=== PATIENT | female | born 1955 | race Caucasian/White ===

== ENCOUNTER 2020-08-19 14:38 | Inpatient (IN) | payer MEDICARE ==
[~2020-08-19] VITALS: Ht 165.1 cm; Wt 103.4 kg
[2020-08-19 15:13] LABS: BASOPHILS ABSOLUTE AUTO 0.05 K/mm3 (0.00-0.23); BASOPHILS PERCENT AUTO 1 % (0-2); EOSINOPHILS PERCENT AUTO 1 % (0-6); Hematocrit 47.5 % (33.0-51.0); Hemoglobin 15.1 g/dL (11.5-16.0); IMMATURE GRAN ABSOLUTE AUTO 0.02 K/mm3 (0.00-0.10); IMMATURE GRAN PERCENT AUTO 0 % (0-1); LYMPHOCYTES ABSOLUTE AUTO 2.55 K/mm3 (0.84-5.20); LYMPHOCYTES PERCENT AUTO 34 % (21-46); MONOCYTES ABSOLUTE AUTO 0.54 K/mm3 (0.16-1.47); MONOCYTES PERCENT AUTO 7 % (4-13); Mean Corpuscular HGB 27.8 pg (26.0-34.0); Mean Corpuscular HGB Conc 31.8 g/dL (31.5-36.5); Mean Corpuscular Volume 87 fL (80-100); Mean Platelet Volume 11.7 fL (9.1-12.4); NEUTROPHILS ABSOLUTE AUTO 4.36 K/mm3 (1.96-9.15); NEUTROPHILS PERCENT AUTO 57 % (41-73); Platelet Count 260 K/mm3 (150-400); RDW Coefficient Variation 13.7 % (11.7-14.2); RDW Standard Deviation 43.8 fL (35.1-46.3); Red Blood Cell Count 5.44 M/mm3 (3.80-5.20); White Blood Cell Count 7.62 K/mm3 (4.00-11.30)
[2020-08-19 15:31] LABS: Alanine Aminotransfer (ALT/SGP 35 U/L (12-78); Albumin, Blood 3.7 g/dL (3.4-5.0); Albumin/Globulin Ratio 0.9 (0.8-1.8); Alk Phos 113 U/L (50-136); Anion Gap 6 mmol/L (6-16); Aspartate Aminotrans (AST/SGOT 24 U/L (12-37); Bilirubin, Total 0.3 mg/dL (0.1-1.0); Blood Urea Nitrogen 15 mg/dL (8-24); CO2, Blood 27 mmol/L (21-32); Calcium, Blood 9.1 mg/dL (8.5-10.1); Chloride, Blood 112 mmol/L (98-108); Creatinine, Blood 0.68 mg/dL (0.40-1.00); Globulin, Blood 4.2 g/dL (2.2-4.0); Glomerular Filtration Rate >60 (60-); Glucose, Blood 91 mg/dL (70-99); Sodium, Blood 145 mmol/L (136-145); Total Protein, Blood 7.9 g/dL (6.4-8.2)
[2020-08-19 16:24] LABS: International Normalized Ratio 0.97; Prothrombin Time Results 10.4 Sec (9.7-11.5)
[2020-08-19 19:28] LABS: CHOL/HDL RATIO 4.6; Cholesterol 218 mg/dL (50-200); HDL Cholesterol 47 mg/dL (>39); LDL/HDL RATIO 2.8; Low Density Lipoprotein Chol 134 mg/dL (0-110); Triglycerides 186 mg/dL (30-160); Very Low Density Lipoprot Chol 37 mg/dL (6-32)
--- NOTE | 2020-08-19 21:00 | NUR ---
ADMIT NOTE PT ARRIVED TO PCU FROM ED VIA STRETCHER AT APPROX 2030. PT WAS SLID FROM ED STRETCHER TO PCU BED WITH 2 STAFF. PT ALERT, ORIENTED TO SELF. ANSWERS YES OR NO QUESTIONS APPROPRIATELY. PT HAS LEFT SIDED STARE, RIGHT FACIAL DROOP AND RIGHT SIDE WEAKNESS. SP02>92% ON RA. TELMETRY READS SR, HR 60'S. PT STATES NO PAIN. CHANGED PT'S ATTENDS UPON ARRIVAL, NEW ATTENDS C/D/I. ADMINISTERED SUPPOSITORY ASPIRIN PER EMAR. NS INFUSING PER EMAR. WITH PT UPON ARRIVAL BUT WENT HOME SHORTLY AFTER. CALL LIGHT IN REACH. WILL CONTINUE TO MONITOR.
--- NOTE | 2020-08-20 05:53 | NUR ---
SHIFT SUMMARY PT ALERT, ORIENTED TO SELF. ANSWERS YES OR NO QUESTIONS APPROPRIATELY. PT SOMETIMES ANSWERS QUESTIONS WITH NON APPROPRIATE ANSWERS/WORDS, BUT APPEARS TO RECOGNIZE THAT SHE IS NOT SAYING THE WORDS SHE IS WANTING TO SAY. PT HAS RIGHT FACIAL DROOP AND RIGHT SIDE WEAKNESS. PT ABLE TO RAISE R LEG UPON COMMAND. PT R ARM/HAND DOES NOT RAISE MORE THAN A FEW INCHES WHEN SHE TRIES TO RAISE IT. SP02>92% ON RA. TELMETRY READS SR, HR 60'S. PT STATES NO PAIN. PT INCONTINENT, NEW ATTENDS C/D/I. NS INFUSING PER EMAR. PT SLEPT T/O THE NIGHT. CALL LIGHT IN REACH. WILL CONTINUE TO MONITOR UNTIL END OF SHIFT.
--- NOTE | 2020-08-20 09:20 | NUR ---
ASSUME CARE: PT IN BED UPON RECEIVING REPORT. PT ALERT ABLE TO STATE NAME AND AWARE THAT SHE'S IN [place] BUT DOESNT KNOW SHE'S IN THE HOSPITAL, PT IS SOMEWHAT CONFUSED ASKED ABOUT HER AGE PT STATED SHE WAS 38 AND 35, ALSO PULLED HER OXIMETRY OFF AND TOLD THIS RN SHE WANTS TO GET OUT OF BED, PT WAS REDIRECTED ABOUT HER SAFETY INSTRUCTED TO USE CALL LIGHT FOR HELP, BED ALARM ON FOR SAFETY. PT INCONTINENT OF VOIDS. VITALS HRR SINUS AT 70'S, BP SYSTOLIC 170-180'S PERMISSIVE HYPERTENSION AT THIS TIME, SATS ABOVE 95% ON RA, AFEBRILE. PT REMAINS NPO NS RUNNING AT 75MLS/HR, AWAITING FOR MRI SCAN FOR TODAY. PT CURRENTLY RECEIVING ASPIRIN SUPPOSITORY. PT IN BED RESTING CALL LIGHTS IN REACH WILL MONITOR
--- NOTE | 2020-08-20 17:57 | NUR ---
PT SUMMARY: SEE PREVIOUS NOTE. NO ACUTE CHANGE FOR THE SHIFT, BP RAMAINED ELEVATED 170-190 WAS GIVEN IV LABETALOL X1 1O MG, PT WAS STARTED ON PO BP MEDS TODAY, HRR NSR 70'S, SATS ABOVE 955 ON RA, AFEBRILE. DIET ADVANCED TO MECH SOFT NECTAR THICK, PT ATE 100% OF DINNER TOLERATED WELL. PT WORKED WITH THERAPY TODAY WAS ABLE TO TRANSFER TO CHAIR 1PA STAND PIVOT. PT RIGHT SIDE STILL WEAK RIGHT FACE DROOP, EXPRESSIVE APHASIA. WAS IN TO VISIT TODAY AWARE OF THE PLANS FOR THE PT. MRI DONE TODAY SHOWED ACUTE INFARCT ON LEFT THALAMUS. NO PLAN FOR INTERVENTION AT THIS TIME, PT WAS STARTED ON PO MEDS. PT IN BED NOW RESTING CALL LIGHTS IN REACH ABLE TO MAKE NEEDS KNOWN, WILL REPORT TO ONCOMING SHIFT
--- NOTE | 2020-08-20 20:00 | NUR ---
CARE ASSUMPTION PT ALERT, ABLE TO MAKE NEEDS KNOWN. CAN ANSWER SOME QUESTIONS APPROPRIATELY, BUT HAS SOME MOMENTS OF EXPRESSIVE APHAGIA. PT ABLE TO USE CALL LIGHT APPROPRIATELY. VSS. SP02>92% ON RA. TELEMETRY READS SR, HR 70'S. PT HAS RIGHT SIDE WEAKNESS, RIGHT SIDE FACIAL DROOP. [place] [facility] [place], GAIT BELT AND FWW. PT DENIES PAIN. CALL LIGHT IN REACH. BED ALARM ON. WILL CONTINUE TO MONITOR.
--- NOTE | 2020-08-21 05:21 | NUR ---
SHIFT SUMMARY NO ACUTE CHANGES THIS SHIFT. PT ALERT, ABLE TO MAKE NEEDS KNOWN. CAN ANSWER SOME QUESTIONS APPROPRIATELY AND STATE NAME/, BUT HAS SOME MOMENTS OF EXPRESSIVE APHAGIA. VSS. SP02>92% ON RA. TELEMETRY READS SR, HR 70'S. PT HAS RIGHT SIDE WEAKNESS, RIGHT SIDE FACIAL DROOP. [place] [facility] [place] 2 [place]IST, GAIT BELT AND FWW. PT HAD EPISODES OF INCONTINENCE WELL, C/D ATTENDS IN PLACE. PT DENIES PAIN. CALL LIGHT IN REACH. BED ALARM ON. WILL CONTINUE TO MONITOR.
--- NOTE | 2020-08-21 08:00 | NUR ---
pt laying in bed awake, watching tv. she responds appropriatley, she's a/ox3, but trying to open a sugar package with one hand, when asked if I can help, she responds no I can get it, did set her tray up, she was able to take po meds one at a time with applesauce, she does have a right side facial droop, her right extremity is very weak, able to barely move it, and slightly open fingers, feet are equally strong, santiago, lungs are clear t/o, on r/a at this time, denies any complaints of pain or sob, voids via bed lozada at this time as she is a max assist to chair, attends in place, skin has scabs all over, moves legs and left hand, call light in reach.
--- NOTE | 2020-08-21 11:08 | NUR ---
it was noted by P.T. and speech that pt is worse neuro moore than yesterday, Dr. Cabrera called and came to room, he ordered another C.T. scan and a loading dose of plavix, this was done. pt right arm is completely flacid, speech feels that her speech is worse today and wants her to be npo, she did swallow the plavix with applesauce ok, she denies complaints, her b/p is better than this am, call light in reach.
--- NOTE | 2020-08-21 18:25 | NUR ---
pt is unchanged, denies any needs or complaints states she feels ok, call light in reach.
--- NOTE | 2020-08-22 05:17 | NUR ---
SHIFT SUMMARY NO ACUTE CHANGES THIS SHIFT. PT ALERT, ABLE TO ANSWER QUESTIONS AND USE CALL LIGHT APPROPRIATELY. PT HAS R SIDE FACIAL DROOP AND R SIDE WEAKNESS. ABLE TO SQUEEZE THIS RN FINGER W/ RIGHT HAND UPON COMMAND, BUT VERY WEAKLY. SP02>92% ON RA. TELMETRY READS SR, HR 60'S. PT INCONTINENT, VOIDED IN ATTENDS MULTIPLE TIMES THIS SHIFT. C/D ATTENDS IN PLACE. PT CONTINUES TO BE NPO PER ORDERS. NS INFUSING THIS SHIFT PER EMAR. PT DENIES PAIN. CALL LIGHT IN REACH. WILL CONTINUE TO MONITOR.
--- NOTE | 2020-08-22 07:57 | NUR ---
pt laying in bed awake, a/ox3, pleasant and cooperative with care, follows commands well, denies any complaints, reports her night was good, lungs are clear t/o, resp even and unlabored, no cough noted, hrr, tele in place running sr per monitor, see strip, no edema noted, ppp+1, cap refill <3sec, b/p a bit high, will give meds soon, iv sites are clear and patent, infusing ns as ordered, btx4, abd flat soft nontender, incont of urine, attends in place, skin has scabs all over, moves left arm without diff, she cant lift right arm but has a weak intelligence operations specialist, but can't open fingers, no movement to foot, santiago, right facial droop, expressive aphagia at times, call light in reach.
--- NOTE | 2020-08-22 12:08 | NUR ---
pt sitting up in a chair, she denies complaints. states she is doing fine, not too cold, no needs, set her up for lunch. call light in reach.
--- NOTE | 2020-08-22 17:57 | NUR ---
PT HAD AN UNEVENTFUL DAY, HAS BEEN CHANGED TO MEDICAL STATUS, IS TRANSFERRING TO MEDICAL FLOOR VIA BED, WITH DRENCHER'S IN ATTENDENCE. REPORT GIVEN TO DELILAH DOUGLAS, ALL BELONGINGS WITH PT.
--- NOTE | 2020-08-22 18:59 | NUR ---
choked while eating dispte having an aid standing by, she coughted with food in her mouth and kept couging for almost 5 min, hob elevated, alert but easily confused, soft spoken, cooperative, both iv's saline locked, rm air, sitting up interacting with nurses during shift change, ron started
--- NOTE | 2020-08-23 03:49 | NUR ---
SUMMARY NO MARKED CHANGES NOTED. PT WATCHED TV UNTIL FALLING ASLEEP. PT CURRENTLY SLEEPING AND IN NO DISTRESS. CALL LIGHT IN REACH.
--- NOTE | 2020-08-23 10:00 | NUR ---
received report from noc shift, a+o, call light in reach bed in low position, pt monitored for meals, speech in to evaluate, sitting up watching tv, neuro eval same as previous day, will continue to monitor and treat, saline locked
--- NOTE | 2020-08-23 18:03 | NUR ---
a+o but still asphasic, r side weakness has not changed during shift, worked with pt and speech, still to be supervised during meals, cooperative with care, saline locked, rm air, call light in reach, resting quietly when woken up for dinner, will continue to monitor and treat until share bsr with noc nurse
--- NOTE | 2020-08-24 04:34 | NUR ---
MUSEUM SECURITY CHIEF SUMMARY PT A&O, PLEASANT AND COOPERATIVE TO CARE. APHASIC. NO C/O PAIN OR ANY DISCOMFORT THIS SHIFT. CALM AND RESTED IN BED T/O SHIFT. R SIDED WEAKNESS. INCONTINENT. ATTENDS IN PLACE. WILL CONT TO MONITOR PATIENT, BED AT LOWEST POSITION. CALL LIGHT WITHIN REACH.
--- NOTE | 2020-08-24 11:00 | NUR ---
A+O, MORE AWAKE AND RESPONSIVE THAN YESTERDAY, SALINE locked, call light in reach, bed in low position, denies pain, feels touch on r side but only gross movement, good profusion and warm, rm air, hob elevated per pt request, sitting up watching tv, ate meals declined snacks thus far, will continue to montitor and treat as appropriate, encouraged movement of limbs while in bed
--- NOTE | 2020-08-24 16:33 | NUR ---
ECHOCARDIOGRAM COMPLETED
--- NOTE | 2020-08-24 19:07 | NUR ---
a+o, still sleepy but more cheerful, family acknolweged the rash all over body said she always got it when lying down, cream prescribed by but not available until 2100, will pass on to noc shift, pt asked if she could get a specialized treatment nurse recommened talking to . wrote note on board to help her remember and family said they would also try to remind her, pt was offered the cream but was hesitant thinking it was to much bother since the rash did not bother her, call light in reach, saline locked, rm air, bed in low position, frequent repositioning, cooperative, much more animated today than previously, still not moving r side significantly
--- NOTE | 2020-08-25 03:46 | NUR ---
DRILL GRINDER SUMMARY PT A&O, ABLE TO MAKE NEEDS KNOWN. PLEASANT AND COOPERATIVE TO CARE. NO C/O PAIN OR ANY DISCOMFORT THIS SHIFT. PT IS 2 PERSON ASSIST. R SIDED WEAKNESS. INCONTINENT, ATTENDS IN PLACE. PT DENIES CP, SOB, OR N/V. BED AT LOWEST POSITION. CALL LIGHT WITHIN REACH.
--- NOTE | 2020-08-25 08:00 | NUR ---
PT PLEASANT DOES HAVE RT FACIAL DROOP. RT EXTREMETIES PRESENT NO MOVEMENT FOR ME ON COMMAND. DENIES PAIN AT THIS TIME. H/R REG, NO MURMER NOTED. NO TELE. LUNGS CLEAR, WITH RT MID AND LOW BASE DIM. ON R/A. RESP EASY, UNLABORED. BT X4 LAST BM TODAY PER PT. VOIDS INCONT. ATTENDS CDI AT THIS TIME. SCABS T/O TRUNK. PT STATES HAS HAD FOR SOME TIME. BED IN LOW POSITION, CALL LITE IN REACH, CALLS APPROP.
--- NOTE | 2020-08-25 11:19 | NUR ---
permission to provide care supa kraft a student nurse recieved permission to provide care to pt on 08/25/2020
--- NOTE | 2020-08-25 13:06 | NUR ---
SPEACH THERAPY INDICATES PT SWEATING ON RT OF FACE AND HEAD. OBSERVED. VSS. PT DENIES DISTRESS. CALLED
--- NOTE | 2020-08-25 15:04 | NUR ---
CALLED BACK. ADVISED OF PAST EVENT OF SWEATING AT RT FACE AND HAIRLINE. DR HIDALGO DID YEST ALSO. NO NEW ORDERS.
--- NOTE | 2020-08-25 18:03 | NUR ---
Spiritual care intial note: Met with Mrs. Lowery and her spouse at bedside. They are non-worship and declined prayer. Pt admits to being worried, but did not want to engage in conversation. Offered gentle encouragement. I will remain available.
--- NOTE | 2020-08-25 18:35 | NUR ---
mauricio discussed with me that opt teeth loose. upon beginning oral care. observed pt mouth. teeth are quite loose. large buildup on teeth. recommended no oral care until seen by dr. called dr mclaughlin. discussed with her. she to see pt tomorrow and advise.
--- NOTE | 2020-08-26 04:25 | NUR ---
PROPERTIES SUPERVISOR SUMMARY PT A&OX3, ABLE TO MAKE NEEDS KNOWN. PLEASANT AND COOPERATIVE TO CARE. CALL APPROPRIATELY FOR ASSISTANCE. PT IS 2P MAX ASSIST D/T R SIDED DEFICIT. PT IS INCONTINENT B/B, ATTENDS IN PLACE. NO C/O PAIN OR ANY DISCOMFORT THIS SHIFT. NO C/O CP, SOB, OR N/V. CALM AND RESTED IN BED T/O SHIFT. CALL LIGHT WITHIN REACH.
[2020-08-26 08:10] LABS: COMPLEMENT C3, SERUM 224 mg/dL (82-167); COMPLEMENT C4, SERUM 38 mg/dL (12-38)
[2020-08-26 17:07] LABS: ANA DIRECT Negative (Negative); ANTI-DSDNA ANTIBODIES 4 IU/mL (0-9); RNP ANTIBODIES <0.2 AI (0.0-0.9); SJOGREN'S ANTI-SS-A <0.2 AI (0.0-0.9); SJOGREN'S ANTI-SS-B <0.2 AI (0.0-0.9); SMITH ANTIBODIES <0.2 AI (0.0-0.9)
--- NOTE | 2020-08-26 17:23 | NUR ---
SHIFT SUMMARY NO ACUTE CHANGES T/O SHIFT, PT A&O TO SELF AND PLACE. CALM AND FOLLOWS DIRECTIONS. PT IS STILL SHOWING RIGHT SIDED DEFICITS. PT WAS ABLE TO GET TO BSC AND CHAIR WITH 2 PERSON ASSISTANCE. PT SEEMED A LITTLE ON THE NERVOUS SIDE WITH ANY PIVOTING OR AMBULATION. PT IS STILL HAVING SOME EXPRESIVE APHASIA, BUT PRIMARILY SLOW SPEECH. SHE REALLY DOES NOT WANT TO GO TO AN IRU; HOWEVER, AND DC PRESCHOOL DISABILITY TEACHER ARE STRONGLY ENCOURAGING HER TO. CONTINUED MEDS WHOLE W/ APPLESAUCE, ONE @ A TIME. CREAM APPLIED TO RASH T/O. BUILD UP AND PLAQUE NOTICED ALONG ROOF OF MOUTH, TEETH, AND BACK OF THROAT. PT REPORTS NO PAIN WITH ORAL CARE BUT TEETH ARE LOOSE.
[2020-08-27 05:12] LABS: Albumin, Blood 3.4 g/dL (3.4-5.0); Anion Gap 7 mmol/L (6-16); Blood Urea Nitrogen 27 mg/dL (8-24); CO2, Blood 27 mmol/L (21-32); Calcium, Blood 9.3 mg/dL (8.5-10.1); Chloride, Blood 103 mmol/L (98-108); Creatinine, Blood 0.75 mg/dL (0.40-1.00); Glomerular Filtration Rate >60 (60-); Glucose, Blood 97 mg/dL (70-99); Phosphorus, Blood 4.1 mg/dL (2.5-4.9); Sodium, Blood 137 mmol/L (136-145)
--- NOTE | 2020-08-27 07:19 | NUR ---
SHIFT SUMMARY PT IS A 65 Y/O FEMALE, ADMITTED FOR CVA. SHE IS A&O X 2, WITH R-SIDE WEAKNESS AND EXPRESSIVE APHASIA. PT IS BEDREST 2P MAX TO CHAIR, INCONTINENT. RED PAPILLARY RASH NOTED TO UPPER BODY. NO C/O PAIN, NAUSEA OR SOB. VITAL SIGNS STABLE. NO ACUTE CHANGES NOTED IN PT CONDITION DURING THE NIGHT. REPORT GIVEN TO ONCOMING RN.
--- NOTE | 2020-08-27 17:43 | NUR ---
SHIFT SUMMARY NO ACUTE CHANGES T/O SHIFT, A&Ox3, CALM AND COOPERATIVE. PT WAS MORE ALERT AND TALKATIVE TODAY. SHE IS STILL UNABLE TO USE HER RIGHT UPPER OR LOWER EXTREMITY. 2 PERSON ASSIST T/O DAY. RASH STILL NOTED ALL OVER BODY, CREAM WAS APPLIED. PT IS NOW AGREEABLE TO GOING TO AN IRU; HOWEVER, A BED WILL NOT BE AVAILABLE FOR ABOUT A WEEK. PT IS CURRENTLY UP IN HER CHAIR ENJOYING DINNER AND WATCHING TV.
--- NOTE | 2020-08-28 04:53 | NUR ---
BUSINESS MAIL ENTRY CLERK SUMMARY R. SIDED DEFECIT NOTED WITH SLIGHT R. FACIAL DROOP. SOME EXPRESSIVE APHASIA BUT PT IS ABLE TO MAKE NEEDS KNOWN. DENIES PAIN OR SOB. NO ACUTE CHANGES NOTED AT THIS TIME. BED IN LOWEST POSITION WITH CALL LIGHT IN REACH. WILL CONTINUE TO MONITOR AND REPORT TO ONCOMING RN.
--- NOTE | 2020-08-28 18:46 | NUR ---
SHIFT SUMMARY LYNDON DENIED PAIN THIS SHIFT. HAD A BM, INCONTINENT OF BOTH URINE AND STOOL. AO2 TO STAND AND PIVOT. ATE MEALS AFTER FULL MEAL SET UP, NO S/S ASPIRATION NOTED, UP IN CHAIR ALL DAY AND HAD MEALS IN CHAIR. EXPRESSIVE APHASIA STILL PROMINENT, MAKING IT DIFFICULT TO TELL PT'S ORIENTATION. ABLE TO GET SOME WORDS OUT. TOOK MEDS ONE AT A TIME IN APPLESAUCE. CALL LIGHT IN REACH, [facility]
--- NOTE | 2020-08-29 04:52 | NUR ---
SHIFT SUMMARY ADMITTED FOR CVA (RT SIDE DEFICITS, EXPRESSIVE APHASIA). PLAN IS FOR PLACEMENT IN A CVA REHAB UNIT. ASPIRATION/DYSPHAGIA PRECAUTIONS. NO NEW CONCERNS THIS SHIFT. PT IS A FULL CODE. MECH SOFT DIET/NECTAR THICK FLUIDS
--- NOTE | 2020-08-29 19:19 | NUR ---
SHIFT SUMMARY LYNDON DENIED PAIN TODAY. VISITED. ATE MEALS W MEAL SET UP. INCONTINENT MOST TIMES, BUT DID GET UP TO BSC ONCE BUT HAD ALREADY GONE IN BRIEF. R SIDE HAS A BIT MORE MOVEMENT IN HER R LEG AND TRANSFERING WITH AO2 WAS EASIER; SPEECH ALSO BECOMING EASIER. TOOK PILLS PRESCRIBED 1 AT A TIME IN APPLESAUCE WITH NO S/S ASP. UP IN CHAIR MOST OF DAY. REPORT GIVEN TO NIGHT NURSE
--- NOTE | 2020-08-30 00:14 | NUR ---
08/29/202029 PT RESTING HIGH FOWLERS POSITION; PTS ENTIRE RIGHT SIDE FLACCID WITH DROOPING NOTED RIGHT SIDE FACIAL AREA; SPEECH SLOW WITH APHASIA NOTED; PT GIVEN ALL H.S.MEDS VIA APPLESAUCE (ONE TABLET AT TIME) AND SWALLOWED WITHOUT ISSUE; BED ALARM APPLIED FOR SAFETY.
--- NOTE | 2020-08-30 03:35 | NUR ---
SHIFT SUMMARY: 65 Y/O OB[place] FEMALE RESTED COMFORTABLY ALL SHIFT; PT RESTING LOW FOWLERS POSITION; PTS RIGHT SIDE BODY FLACCID WITH NO MOVEMENT NOTED; PTS CONTINUES HAVE APHASIA; DENIES PAIN OR NAUSEA; BED ALARM APPLIED, BED IN LOW POSITION WITH CALL LIGHT AT SIDE.
--- NOTE | 2020-08-30 11:47 | NUR ---
NO IV ACCESS ORDER RECEIVED VERBAL ORDER TO HAVE NO IV ACCESS FROM DR. RODRIGUEZ VERBALLY.
--- NOTE | 2020-08-30 19:48 | NUR ---
Shift Summary A/Ox self and city/state. Expressive aphasia noted, sometime forgetful to month/year. Denies pain, shortness of breath, dizziness. Rashes remain t/o body, patient refuses Triamcinolone. Up to [place] for meals, refused oral care this shift. Appetite is good, supervision with meals. R arm flaccid, c/o numbness/tingling to bilateral feet that extends to thighs. R lower extremity weakness noted. No new concerns, report given to oncoming RN.
--- NOTE | 2020-08-30 21:10 | NUR ---
PT QUIET UNLESS SPOKEN TO. RIGHT SIDE ARM FLACCID, RIGHT LEG VERY WEAK. STATED FELT SENSATION IN ALL 4 EXT. TOLERATED MEDS WELL IN APPLESAUCE. CALL LIGHT IN REACH
--- NOTE | 2020-08-31 05:53 | NUR ---
SHIFT SUMMARY HAS BEEN RESTING QUIETLY WITH FEW INTERRUPTIONS. DENIED PAIN WHEN ASKED. RIGHT SIDE REMAINS WEAKER THAN LEFT. RIGHT ARM FLACCID. STATED THAT SHE STILL HAS FEELING IN ALL 4 EXT. CALL LIGHT IN REACH
--- NOTE | 2020-08-31 17:13 | NUR ---
SUMMARY PT SITTING UP IN THE CHAIR AT THE BEDSIDE WATCHING TV, PT HAS BEEN PLEASANT AND COOPERATIVE WITH CARE, USES HER CALL LIGHT APPROPRIATELY, 2P ASSIST TO GET UP TO THE COMMODE OR THE CHAIR, VSS, NO ACUTE CHANGES, WILL CONT TO MONITOR
--- NOTE | 2020-08-31 22:15 | NUR ---
ASSUMED CARE OF PATIENT AT APPROXIMATELY 1900 FROM MARQUEZ Dalton RN. PATIENT ALERT AND ORIENTED X4; 2 PERSON OUT OF BED. PATIENT DENIES PAIN, NAUSEA OR DIZZINESS. PATIENT HAS RIGHT SIDED DEFICIT FROM CVA. NO IV ACCESS PER ORDER. NO TELE. ROOM AIR. ATTENDS IN PLACE. MEDICATIONS ONE AT A TIME IN APPLESAUCE. PATIENT CURRENTLY RESTING IN BED; CALL LIGHT IN REACH; BED IN LOWEST POSISTION; BED ALARM ON; WILL CONTINUE TO MONITOR AND ASSESS UNTIL END OF SHIFT.
--- NOTE | 2020-09-01 17:32 | NUR ---
PT AO AND COOPERATIVE OF CARE. NOT ACUTE CHANGES AT THIS TIME. PT CONTINUE TO HAV R SIDED WEAKNESS THAT AFFECTS HER SPEECH AND MOVEMENT. PT HAS BEEN UP IN CHAIR MOST OF THE DAY. PT IS NOW RESTING IN BED NO DISTRESS NOTED AT THIS TIME. PLEASANT AND COOPERATIVE OF ALL CARE. PT WILL SOMETIMES HAVE TROUBLE GETTING OUT THE WORD SHE WANTS TO SAY, BUT IS WORKING HARD. WILL CONTINUE TO MONITOR.
--- NOTE | 2020-09-02 04:24 | NUR ---
SHIFT SUMMARY ADMITTED FOR CVA. RT SIDED DEFICITS. FULL CODE. PLAN IS FOR PLACEMENT. CARE MANAGEMENT IS ASSISTING. ASPIRATION PRECAUTIONS. INCONTINENCE. 2 MAX ASSIST W/GAIT BELT. NECTAR THICK LIQUIDS. CALL BUTTON WITHIN REACH. PT CALLS APPROPRIATELY AND FOLLOWS INSTRUCTION.
--- NOTE | 2020-09-02 17:57 | NUR ---
PT I SA/OX3, PLEASANT AND COOPERATIVE, THE PT HAS SOME COMTINUED SPEECH ASPHASIA AT TIMES, THE PT IS UP TO THE CHAIR FOR MEALS AND TODAY HAS BEEN IN THE CHAIR ALL DAY PER HER REQUEST, THE PT WAS GIVEN A SHOWER BY THE DIP UNIT OPERATOR TODAY, FAMILY WAS IN TO SEE THE PT, THE PT APPEARS TO BE BREATHING EASILY ON RA, THE PT DENIES ANY PAIN, THE PT CONTINUES TO HAVE SIGNIFICANT RIGHT SIDES WEAKNESS IS A 2 PERSON ASSIST TRANSFER, CALL LIGHT IN REACH, WILL CONTINUE TO MONITOR AND ASSESS FOR CHANGES
--- NOTE | 2020-09-03 04:36 | NUR ---
SHIFT SUMMARY ASSUMED CARE OF PT 1900. PT IS ALERT BUT NOT SURE IF ORIENTED DUE TO APAHSIA. LUNG SOUNDS CLEAR, HEART SOUNDS REGULAR. PT R SIDE IS FLACCID BUT PT CAN WIGGLE BIG TOE. PT WAS INCONTINENT OF URINE T/O THE NIGHT. NO ACUTE EVETNS DURING THE NIGHT. PT SLEPT MOST OF THE NIGHT. CALL LIGHT IN REACH, BED IN LOWEST POSTION, WILL CONTINUE TO MONITOR UNTIL DAYSHIFT NURSE ARRIVES.
--- NOTE | 2020-09-03 15:45 | NUR ---
PT IS A/OX3, PLEASANT AND COOPERATIVE, THE PT IS UP WITH 2 PERSON ASSIST, TO THE CHAIR AND THE BSC, THE PT APPEARS TO BE BREATHING EASILY ON RA AT THIS TIME, NO NEW NEURO DEFICITS NOTICED CONTIUES TO, HAVE RIGHT SIDE DEFICITS AND FACIAL DROOP, SPEECH APPEARS TO BE IMPROVING COMPARED TO YESTERDAY, HOWEVER CONTINUES TO ASPHASIA, WAS AT HTE BEDSIDE TODAY VISITING, PT DENIES ANY PAIN, CALL LIGHT IN REACH, WILL CONTINUE TO MONITOR AND ASSESS FOR CHANGES
[2020-09-04 04:44] LABS: BASOPHILS ABSOLUTE AUTO 0.08 K/mm3 (0.00-0.23); BASOPHILS PERCENT AUTO 1 % (0-2); EOSINOPHILS ABSOLUTE AUTO 0.16 K/mm3 (0.00-0.68); EOSINOPHILS PERCENT AUTO 2 % (0-6); Hemoglobin 15.6 g/dL (11.5-16.0); IMMATURE GRAN ABSOLUTE AUTO 0.01 K/mm3 (0.00-0.10); IMMATURE GRAN PERCENT AUTO 0 % (0-1); LYMPHOCYTES ABSOLUTE AUTO 3.11 K/mm3 (0.84-5.20); LYMPHOCYTES PERCENT AUTO 35 % (21-46); MONOCYTES ABSOLUTE AUTO 0.58 K/mm3 (0.16-1.47); MONOCYTES PERCENT AUTO 7 % (4-13); Mean Corpuscular HGB 28.6 pg (26.0-34.0); Mean Corpuscular HGB Conc 32.5 g/dL (31.5-36.5); Mean Corpuscular Volume 88 fL (80-100); Mean Platelet Volume 11.8 fL (9.1-12.4); NEUTROPHILS ABSOLUTE AUTO 4.94 K/mm3 (1.96-9.15); NEUTROPHILS PERCENT AUTO 56 % (41-73); Platelet Count 267 K/mm3 (150-400); RDW Coefficient Variation 13.9 % (11.7-14.2); RDW Standard Deviation 44.3 fL (35.1-46.3); Red Blood Cell Count 5.45 M/mm3 (3.80-5.20); White Blood Cell Count 8.88 K/mm3 (4.00-11.30)
[2020-09-04 05:15] LABS: Anion Gap 6 mmol/L (6-16); Blood Urea Nitrogen 26 mg/dL (8-24); Bun/Creatinine Ratio 32.5 (12.0-20.0); CO2, Blood 27 mmol/L (21-32); Calcium, Blood 9.7 mg/dL (8.5-10.1); Chloride, Blood 103 mmol/L (98-108); Glomerular Filtration Rate >60 (60-); Glucose, Blood 97 mg/dL (70-99); Potassium, Blood 4.1 mmol/L (3.5-5.5); Sodium, Blood 136 mmol/L (136-145)
--- NOTE | 2020-09-04 05:39 | NUR ---
SHIFT SUMMARY PT HAD UNEVENTFUL NIGHT. SLEPT THROUGH MOST OF THE NIGHT. NO COMPLAINTS OF PAIN OR DISCOMFORT. R SIDED DEFICITS, R LEG VERY WEAK AND R ARM FLACCID. PT HAS SOME EXPRESSIVE APHASIA THAT IS WORSE SOMETIMES MORE THAN OTHERS. PT REMAINED IN BED THIS EVENING. NO ACUTE CHANGES. VITAL SIGNS STABLE. PLAN FOR SNF DISCHARGE ONCE BED IS AVAILABLE. WILL CONTINUE TO MONITOR.
--- NOTE | 2020-09-04 17:09 | NUR ---
SHIFT SUMMARY PT UP IN RECLINER CHAIR THROUGHOUT THE DAY. ABLE TO REPOSITION SELF IN CHAIR BUT NEEDS REMINDING TO KEEP HERSELF SITTING UPRIGHT RATHER THAN LEANING TO THE R. 2 PERSON ASSIST FROM CHAIR TO COMMODE USING GAIT BELT AND HEMIWALKER. TOLERATED WITH NO PROBLEM. OCCASIONAL APHASIA WITH HER SPEAK AND COMPREHENSION. CALLS APPROPRIATELY.
--- NOTE | 2020-09-05 05:12 | NUR ---
SHIFT SUMMARY PT HAD UNEVENTFUL NIGHT. SLEPT WELL. APHASIA BETTER THIS EVENING THAN NIGHT BEFORE. PT CONTINUES TO BE FLACCID IN R ARM AND NEARLY FLACCID IN RLE. DISCOLORATION AND DRY SKIN TO BLE'S. PT REFUSED ORDERED CREAM FOR BLE'S. VITAL SIGNS STABLE. AWAITING PLACEMENT TO SNF. WILL CONTINUE TO MONITOR.
--- NOTE | 2020-09-05 14:50 | NUR ---
PATIENT HAS BEEN PLEASANT AND COOPERATIVE WITH STAFF. VITALS REMAIN STABLE AND WNL. NO ACUTE CHANGES TO REPORT OF AT THIS TIME. PATIENT AWAITING PLACEMENT TO A SNF FOR FURTHER REHAB. PATIENT CALLS FOR STAFF ASSIST NEEDED. WILL CONTINUE TO MONITOR AND PROVIDE CARE NEEDED.
--- NOTE | 2020-09-05 23:11 | NUR ---
PATIENT WAKES EASILY TO VERBAL, MOVES LEFT SIDE PURPOSEFULLY, RIGHT SIDE IS FLACID. SHE REPOSITIONS RIGHT ARM WITH LEFT ARM. DURING THE ASSESSMENT, SHE WAS ABLE TO FEEL PRESSURE AND SHARP SENSATION IN ALL DERMATOMES ON HER RIGHT ARM AND LEG. SHE WAS HAPPILY SURPRISED, SHE HAS NOT FELT ANYTHING ON THAT SIDE SINCE HER INITIAL SYMPTOMS OF CVA. CALL LIGHT IN REACH OF LEFT HAND.
--- NOTE | 2020-09-06 05:47 | NUR ---
PATIENT SLEPT MOST OF THE SHIFT. WAKES EASILY TO VERBAL STIMULI. PATIENT CONTINUES TO FEEL PRESSURE AND SHARP SENSATIONS IN ALL DERMATOMES OF RT ARM AND LEG. NO ACUTE CHANGES. CALL LIGHT IN REACH.
--- NOTE | 2020-09-06 15:18 | NUR ---
PATIENT HAS BEEN PLEASANT AND COOPERATIVE. STATES FEELING IN RIGHT LIMBS WHICH WAS NOT PRESENT YESTERDAY; PATIENT VERY EXCITED ABOUT THAT SENSATION. DENIES PAIN AND DISCOMFORT. NO ACUTE CHANGES TO REPORT OF AT THIS TIME. WILL CONTINUE TO MONITOR AND PROVIDE CARE NEEDED.
--- NOTE | 2020-09-07 15:43 | NUR ---
PATIENT REMAINS STABLE. AWAITING PLACEMENT TO SNF; POSSIBLY TOMORROW. NO ACUTE CHANGES TO REPORT OF AT THIS TIME. WILL CONTINUE TO MONITOR AND PROVIDE CARE NEEDED.
--- NOTE | 2020-09-08 06:05 | NUR ---
SUMMARY NO ISSUES NOTED. PT WATCHED TV AND SLEPT T/O SHIFT. PT HAD NO COMPLAINTS. PT PLESANT AND COOPERATIVE. PT CURRENTLY SLEEPING AND BREATHING EASY. CALL LIGHT IN REACH.
[2020-09-08] MEDS ORDERED: ATEN25 PO (11:43)
[2020-09-08 12:28] LABS: Influenza A, PCR Negative (NEGATIVE); Influenza B, PCR Negative (NEGATIVE); Resp Syncytial Virus, PCR Negative (NEGATIVE); SARS-Cov-2 (COVID-19) PCR, MMC Negative (NEGATIVE)
[2020-09-08] MEDS ORDERED: Amlodipine Besy10 MG PO (15:54)
[2020-09-08] MEDS ORDERED: ASPI81CH PO (15:58)
[2020-09-08] MEDS ORDERED: ATOR80 PO (15:59)
[2020-09-08] MEDS ORDERED: CLOP75 PO (16:00)
[2020-09-08] MEDS ORDERED: HYDCHL25 PO (16:01)
[2020-09-08] MEDS ORDERED: SENN187 PO (16:02)
[2020-09-08] MEDS ORDERED: Prinivil10 MG PO (16:02)
--- NOTE | 2020-09-08 16:05 | NUR ---
PT DISCHARGED FROM THE UNIT. TRANSPORT TO [facility] IN [place]. SPOKE WITH REGULO ON THE PHONE AND GAVE REPORT. PT LEFT THE UNIT AT 1600 WITH TRANSPORT VIA WHEELCHAIR.
== END 2020-09-08 16:08 | DRG 65 ==
LOC: ER 14:38 → MEDS 14:39 → PCU 14:39 → MEDS 08-22 18:05 → ENPENDDIS 09-08 10:49 → EDPENDDIS 09-08 10:49 → MEDS 09-08 16:08
PROVIDERS: Emergency Medicine; Family Medicine; Internal Medicine; Physician Assistant; ADMIT Internal Medicine
DX: I63.532 Cerebral infarction due to unspecified occlusion or stenosis of left posterior cerebral artery (principal); G81.91 Hemiplegia, unspecified affecting right dominant side; Z68.45 Body mass index [BMI] 70 or greater, adult; R47.1 Dysarthria and anarthria; Z20.828 Contact with and (suspected) exposure to other viral communicable diseases; E78.5 Hyperlipidemia, unspecified; I10 Essential (primary) hypertension; R21 Rash and other nonspecific skin eruption; E66.9 Obesity, unspecified
CPT/HCPCS: 0241U; 36415; 70450; 70496; 70498; 70551; 80048; 80053; 80061; 80069; 82947; 84484; 85025; 85610; 86038; 86160; 86162; 86225; 92507; 92523; 92526; 92610; 93306; 96374-59; 96376-59; 97110; 97112; 97116; 97163; 97166; 97530; 97535; 99285-25; A9270; A9270-GY; J1650; J7030; Q3014; Q9967; U0004

== ENCOUNTER 2022-05-24 13:42 | Emergency (ER) | payer OTHER ==
[~2022-05-24] VITALS: Ht 165.1 cm; Wt 108.9 kg
[~2022-05-24 13:42] MED LIST: ASPI81CH PO; ATEN25 PO; ATOR80 PO; Amlodipine Besy10 MG PO; CLOP75 PO; HYDCHL25 PO; Prinivil10 MG PO; SENN187 PO
[2022-05-24 14:38] LABS: Albumin, Blood 3.4 g/dL (3.4-5.0); Albumin/Globulin Ratio 0.7 (0.8-1.8); Bilirubin, Total 0.7 mg/dL (0.1-1.0); Bun/Creatinine Ratio 16.5 (12.0-20.0); Calcium, Blood 9.3 mg/dL (8.5-10.1); Creatinine, Blood 0.85 mg/dL (0.40-1.00); Globulin, Blood 4.6 g/dL (2.2-4.0); Potassium, Blood 3.8 mmol/L (3.5-5.5)
[2022-05-24 14:53] LABS: BASOPHILS ABSOLUTE AUTO 0.04 K/mm3 (0.00-0.23); BASOPHILS PERCENT AUTO 0 % (0-2); EOSINOPHILS ABSOLUTE AUTO 0.01 K/mm3 (0.00-0.68); EOSINOPHILS PERCENT AUTO 0 % (0-6); Hematocrit 45.7 % (33.0-51.0); Hemoglobin 15.1 g/dL (11.5-16.0); IMMATURE GRAN ABSOLUTE AUTO 0.07 K/mm3 (0.00-0.10); IMMATURE GRAN PERCENT AUTO 1 % (0-1); LYMPHOCYTES ABSOLUTE AUTO 1.26 K/mm3 (0.84-5.20); LYMPHOCYTES PERCENT AUTO 9 % (21-46); MONOCYTES ABSOLUTE AUTO 0.67 K/mm3 (0.16-1.47); MONOCYTES PERCENT AUTO 5 % (4-13); Mean Corpuscular HGB 28.7 pg (26.0-34.0); Mean Corpuscular Volume 87 fL (80-100); Mean Platelet Volume 11.3 fL (9.1-12.4); NEUTROPHILS ABSOLUTE AUTO 12.18 K/mm3 (1.96-9.15); NEUTROPHILS PERCENT AUTO 86 % (41-73); Platelet Count 194 K/mm3 (150-400); Red Blood Cell Count 5.27 M/mm3 (3.80-5.20); White Blood Cell Count 14.23 K/mm3 (4.00-11.30)
[2022-05-24 16:17] LABS: Source, Urine Clean Catch
[2022-05-24 16:59] LABS: Appearance, Urine Turbid (Clear); Bilirubin, Urine Neg (Neg); Blood, Urine 5+ (Neg); Glucose Qualitative, Urine Neg (Neg); Ketones, Urine Neg (Neg); Leukocyte Esterase, Urine 3+ (Neg); Nitrite, Urine Pos (Neg); Protein, Urine 3+ (Neg); Specific Gravity, Urine 1.015 (1.003-1.022); Urobilinogen, Urine NORM (Normal)
[2022-05-24 17:02] LABS: Color, Urine Orange (P-Yellow)
[2022-05-24 17:03] LABS: Bacteria Many /hpf; Red Blood Cells, Urine TNTC /hpf (0-2); Squamous Epithelial Cells Mod /hpf (Few); White Blood Cells, Urine TNTC /hpf (0-5)
[2022-05-24 17:04] LABS: Hyaline Casts 0-2 /lpf (0-2)
[2022-05-24] MEDS ORDERED: CEPH500 PO (17:21)
== END 2022-05-24 17:43 | disposition home or self-care (01) ==
LOC: ER 13:42
PROVIDERS: Physician Assistant
DX: N12 Tubulo-interstitial nephritis, not specified as acute or chronic (principal); I10 Essential (primary) hypertension; Z86.73 Personal history of transient ischemic attack (TIA), and cerebral infarction without residual deficits; Z79.82 Long term (current) use of aspirin; Z79.899 Other long term (current) drug therapy
CPT/HCPCS: 70450; 80053; 81001; 82947; 85025; J0696

== ENCOUNTER → 2023-09-05 | Outpatient (CLI) | payer OTHER ==
[~2023-09-05] MED LIST changes: +CEPH500 PO
[2023-09-05 21:07] LABS: Bun/Creatinine Ratio 18.9 (12.0-20.0); Calcium, Blood 9.7 mg/dL (8.5-10.1); Creatinine, Blood 0.79 mg/dL (0.40-1.00); Potassium, Blood 3.4 mmol/L (3.5-5.5)
[2023-09-11 11:23] LABS: HEMOGLOBIN A1C 7.7 % (4.8-5.6)
== END ==
LOC: LAB SHORT 17:53 → LAB 17:53
PROVIDERS: Nurse Practitioner Family
DX: I10 Essential (primary) hypertension (principal); E11.59 Type 2 diabetes mellitus with other circulatory complications
CPT/HCPCS: 80048; 83036

== ENCOUNTER → 2024-05-02 | Outpatient (CLI) | payer OTHER ==
[2024-05-02 17:49] LABS: BASOPHILS ABSOLUTE AUTO 0.04 K/mm3 (0.00-0.23); BASOPHILS PERCENT AUTO 1 % (0-2); EOSINOPHILS ABSOLUTE AUTO 0.18 K/mm3 (0.00-0.68); EOSINOPHILS PERCENT AUTO 2 % (0-6); Hematocrit 41.5 % (33.0-51.0); Hemoglobin 13.6 g/dL (11.5-16.0); IMMATURE GRAN ABSOLUTE AUTO 0.02 K/mm3 (0.00-0.10); IMMATURE GRAN PERCENT AUTO 0 % (0-1); LYMPHOCYTES ABSOLUTE AUTO 2.45 K/mm3 (0.84-5.20); LYMPHOCYTES PERCENT AUTO 29 % (21-46); MONOCYTES ABSOLUTE AUTO 0.51 K/mm3 (0.16-1.47); MONOCYTES PERCENT AUTO 6 % (4-13); Mean Corpuscular HGB 29.2 pg (26.0-34.0); Mean Corpuscular HGB Conc 32.8 g/dL (31.5-36.5); Mean Corpuscular Volume 89 fL (80-100); Mean Platelet Volume 12.3 fL (9.1-12.4); NEUTROPHILS PERCENT AUTO 62 % (41-73); Platelet Count 284 K/mm3 (150-400); RDW Coefficient Variation 14.1 % (11.7-14.2); RDW Standard Deviation 45.6 fL (35.1-46.3); Red Blood Cell Count 4.66 M/mm3 (3.80-5.20)
[2024-05-02 18:04] LABS: Alanine Aminotransfer (ALT/SGP 52 U/L (12-78); Albumin, Blood 3.7 g/dL (3.4-5.0); Albumin/Globulin Ratio 0.9 (0.8-1.8); Alk Phos 98 U/L (50-136); Anion Gap 12 mmol/L (3-11); Aspartate Aminotrans (AST/SGOT 37 U/L (12-37); Bilirubin, Total 0.4 mg/dL (0.1-1.0); Blood Urea Nitrogen 15 mg/dL (8-24); Bun/Creatinine Ratio 19.7 (12.0-20.0); CHOL/HDL RATIO 2.9; CO2, Blood 28 mmol/L (21-32); Calcium, Blood 9.4 mg/dL (8.5-10.1); Chloride, Blood 102 mmol/L (98-108); Cholesterol 110 mg/dL (50-200); Creatinine, Blood 0.76 mg/dL (0.40-1.00); Globulin, Blood 4.2 g/dL (2.2-4.0); Glomerular Filtration Rate 85 (60-); Glucose, Blood 110 mg/dL (70-99); HDL Cholesterol 38 mg/dL (>39); LDL/HDL RATIO 1.1; Low Density Lipoprotein Chol 42 mg/dL (0-110); Potassium, Blood 3.3 mmol/L (3.5-5.5); Sodium, Blood 139 mmol/L (136-145); Total Protein, Blood 7.9 g/dL (6.4-8.2); Triglycerides 151 mg/dL (30-160); Very Low Density Lipoprot Chol 30 mg/dL (6-32)
== END | disposition home or self-care (01) ==
LOC: LAB 16:03 → LAB SHORT 16:03
PROVIDERS: Nurse Practitioner Family
DX: E78.5 Hyperlipidemia, unspecified (principal)
CPT/HCPCS: 80053; 80061; 85025

== ENCOUNTER → 2024-06-04 | Outpatient (CLI) | payer OTHER ==
[2024-06-04 19:22] LABS: Bun/Creatinine Ratio 18.5 (12.0-20.0); Calcium, Blood 9.8 mg/dL (8.5-10.1); Creatinine, Blood 0.81 mg/dL (0.40-1.00); Potassium, Blood 4.1 mmol/L (3.5-5.5)
== END ==
LOC: LAB 17:53 → LAB SHORT 17:53
PROVIDERS: Nurse Practitioner Family
DX: R60.0 Localized edema (principal)
CPT/HCPCS: 80048

== ENCOUNTER 2024-10-06 13:54 | Inpatient (IN) | payer OTHER ==
[~2024-10-06] VITALS: Ht 165.1 cm; Wt 108.3 kg
[2024-10-06] MEDS ORDERED: Ondansetron HCl 2 MG / ML 2ML Vial IV PRN ×2 (14:10→17:25)
[2024-10-06] MEDS ORDERED: NS 1,000 ML IV SCH ×2 (14:15→15:35)
[2024-10-06 14:30] LABS: Hematocrit 43.2 % (33.0-51.0); Hemoglobin 14.2 g/dL (11.5-16.0); Mean Corpuscular HGB 29.6 pg (26.0-34.0); Mean Corpuscular HGB Conc 32.9 g/dL (31.5-36.5); Mean Corpuscular Volume 90 fL (80-100); Mean Platelet Volume 11.8 fL (9.1-12.4); Platelet Count 194 K/mm3 (150-400); RDW Coefficient Variation 13.9 % (11.7-14.2); White Blood Cell Count 7.61 K/mm3 (4.00-11.30)
[2024-10-06 14:39] LABS: Source, Urine Straight Cath
[2024-10-06 14:43] LABS: Bilirubin, Urine Neg (Neg); Blood, Urine 2+ (Neg); Glucose Qualitative, Urine Neg (Neg); Ketones, Urine Neg (Neg); Leukocyte Esterase, Urine 3+ (Neg); Nitrite, Urine Neg (Neg); Protein, Urine 2+ (Neg); Urobilinogen, Urine NORM (Normal)
[2024-10-06 14:49] LABS: BAND PERCENT MAN 23 % (0-8); BASOPHILS PERCENT MAN 0 % (0-2); EOSINOPHILS PERCENT MAN 0 % (0-6); LYMPHOCYTES ABSOLUTE MAN 0.38 K/mm3 (0.84-5.20); LYMPHOCYTES PERCENT MAN 5 % (21-46); METAMYELOCYTE ABSOLUTE MAN 0.22 K/mm3 (0.00-0.00); METAMYELOCYTE PERCENT MAN 3 % (0-0); MONOCYTES ABSOLUTE MAN 0.22 K/mm3 (0.16-1.47); MONOCYTES PERCENT MAN 3 % (4-13); NEUTROPHILS ABSOLUTE MAN 6.77 K/mm3 (1.96-9.15); SEG NEUTROPHILS PERCENT MAN 66 % (41-73); TOTAL CELLS COUNTED 100
[2024-10-06 14:51] LABS: Appearance, Urine Cloudy (Clear); Color, Urine Yellow (P-Yellow)
[2024-10-06 14:52] LABS: Amorphous Mod (0-Heavy); Bacteria Many /hpf; Red Blood Cells, Urine 0-2 /hpf (0-2); Squamous Epithelial Cells Few /hpf (Few); White Blood Cells, Urine 50-100 /hpf (0-5)
[2024-10-06 15:02] LABS: Free Thyroxine 1.08 ng/dL (0.70-1.60)
[2024-10-06 15:05] LABS: Albumin, Blood 3.1 g/dL (3.4-5.0); Albumin/Globulin Ratio 0.7 (0.8-1.8); Bilirubin, Total 0.8 mg/dL (0.1-1.0); Bun/Creatinine Ratio 14.9 (12.0-20.0); Calcium, Blood 9.6 mg/dL (8.5-10.1); Creatinine, Blood 1.34 mg/dL (0.40-1.00); Globulin, Blood 4.5 g/dL (2.2-4.0); Potassium, Blood 3.6 mmol/L (3.5-5.5); Thyroid Stimulating Hormone 3.47 uIU/mL (0.360-4.800); Total Protein, Blood 7.6 g/dL (6.4-8.2)
[2024-10-06] MEDS ORDERED: Vancomycin HCL 2,000 MG in NS 520 ML IV ONE (15:10)
[2024-10-06] MEDS ORDERED: Piperacillin/Tazobactam Sod 3.375 GM in NS 100 ML IV ONE (15:10)
[2024-10-06 15:13] LABS: International Normalized Ratio 1.09; Prothrombin Time Results 11.6 Sec (9.7-11.5)
[2024-10-06] MEDS ORDERED: Lactated Ringer's 1,000 ML IV SCH (17:25)
[2024-10-06] MEDS ORDERED: Rocuronium Bromide 10 MG/ML 5ML Injection IV ONE (17:43)
[2024-10-06] MEDS ORDERED: Midazolam HCl 1MG / ML 2ML Vial IV ONE (17:43)
[2024-10-06] MEDS ORDERED: Etomidate 2MG / ML 10ML Vial XX ONE (17:43)
[2024-10-06] MEDS ORDERED: Insulin Regular 100 UNIT/ML 10ML Vial SC SCH (18:00)
[2024-10-06 18:03] LABS: Base Excess Venous -10.9 mmol/L; PCO2 Venous 28.6 mmHg (38-42); pH Blood Venous 7.33 (7.34-7.37)
[2024-10-06] MEDS ORDERED: Acetaminophen 325 MG TABLET PO ONE (18:25)
[2024-10-06] MEDS ORDERED: HyDROXyzine HCl 25 MG Tab PO ONE (18:25)
[2024-10-06] MEDS ORDERED: Ketorolac Tromethamine 15mg Vial IV ONE (18:35)
[2024-10-06] MEDS ORDERED: LORazepam 2 MG/ML 1ML Injection IV ONE (18:35)
[2024-10-06 18:58] LABS: Influenza A, PCR NEGATIVE (NEGATIVE); Influenza B, PCR NEGATIVE (NEGATIVE); Resp Syncytial Virus, PCR NEGATIVE (NEGATIVE); SARS-Cov-2 (COVID-19) PCR, MMC NEGATIVE (NEGATIVE)
[2024-10-06] MEDS ORDERED: FLU VACC TS2024-25(6MOS UP)/PF 45 MCG/0.5 ML SYRINGE IM ONE (19:00)
[2024-10-06 21:35] LABS: Albumin, Blood 2.8 g/dL (3.4-5.0); Albumin/Globulin Ratio 0.7 (0.8-1.8); Bilirubin, Total 0.6 mg/dL (0.1-1.0); Bun/Creatinine Ratio 12.2 (12.0-20.0); Calcium, Blood 8.6 mg/dL (8.5-10.1); Creatinine, Blood 1.8 mg/dL (0.40-1.00); Globulin, Blood 3.9 g/dL (2.2-4.0); Potassium, Blood 3.4 mmol/L (3.5-5.5); Total Protein, Blood 6.7 g/dL (6.4-8.2)
[2024-10-06] MEDS ORDERED: NS 250 ML IV PRN (21:35)
[2024-10-06] MEDS ORDERED: Piperacillin/Tazobactam Sod 3.375 GM in NS 100 ML IV SCH (22:00)
[2024-10-06] MEDS ORDERED: LORazepam 2 MG/ML 1ML Injection IV PRN (22:15)
[2024-10-07] VITALS (20 sets, daily range): BP systolic 57–143; BP diastolic 22–92
[2024-10-07] MEDS ORDERED: LORazepam 2 MG/ML 1ML Injection IV STA (01:40)
[2024-10-07 04:19] LABS: Hemoglobin 11.7 g/dL (11.5-16.0); Mean Corpuscular HGB Conc 33.4 g/dL (31.5-36.5); Mean Corpuscular Volume 90 fL (80-100); Mean Platelet Volume 12.3 fL (9.1-12.4); NRBC ABSOLUTE 0.06 K/mm3 (0.00-0.02); NRBC Auto 0.2 /100 WBC (0.0-0.2); Platelet Count 138 K/mm3 (150-400); RDW Coefficient Variation 14.5 % (11.7-14.2); RDW Standard Deviation 47.5 fL (35.1-46.3)
[2024-10-07 04:35] LABS: Bun/Creatinine Ratio 13.6 (12.0-20.0); Calcium, Blood 8.3 mg/dL (8.5-10.1); Creatinine, Blood 1.91 mg/dL (0.40-1.00); Potassium, Blood 4.5 mmol/L (3.5-5.5)
[2024-10-07 04:50] LABS: BAND PERCENT MAN 20 % (0-8); BASOPHILS PERCENT MAN 0 % (0-2); EOSINOPHILS PERCENT MAN 0 % (0-6); LYMPHOCYTES ABSOLUTE MAN 0.72 K/mm3 (0.84-5.20); LYMPHOCYTES PERCENT MAN 2 % (21-46); METAMYELOCYTE ABSOLUTE MAN 1.81 K/mm3 (0.00-0.00); METAMYELOCYTE PERCENT MAN 5 % (0-0); MONOCYTES ABSOLUTE MAN 3.99 K/mm3 (0.16-1.47); MONOCYTES PERCENT MAN 11 % (4-13); MYELOCYTE ABSOLUTE MAN 1.45 K/mm3 (0.00-0.00); MYELOCYTE PERCENT MAN 4 % (0-0); NEUTROPHILS ABSOLUTE MAN 28.31 K/mm3 (1.96-9.15); SEG NEUTROPHILS PERCENT MAN 58 % (41-73); TOTAL CELLS COUNTED 100
[2024-10-07] MEDS ORDERED: Haloperidol Lactate Inj. 5 MG/ML Injection IM PRN (07:00)
[2024-10-07] MEDS ORDERED: Enoxaparin 40 MG/0.4 ML SYR SC SCH (09:00)
--- NOTE | 2024-10-07 10:15 | NUR ---
Transfer note. When assuming care this morning, Pt was resting well in bed. Staff rounded shortly after 0800, Pt was A&Ox2 but very cooperative with care. Pt was able to answer questions and have short conversations. Pt was notably tachypenic, which limited her speech patterns. Wheezes throughout. Pt able to maintain O2 sats >92% on RA. Pt seemed to be improving compared to report of nightshift RN. Midline was placed to LUE. came back to visit and seemed to increase Pts agitation. This RN had not seen any agitation until arrived. stated that she really wants to go home so he thinks it makes her anxious. He also stated that she believes someone might kill her while she is admitted. Shortly after arrived staff assisted Pt with bed bath. After the bedbath was finshed, Pts respiratory status started to decline. MD happended to be rounding when status declined and decided that Pt may benefit from CPAP. RT was called for breathing tx and CPAP set up. Concerns were brought up that Pt would not tolerate CPAP mask and may need to transfer units to have IV medication to be successful.RT had to hold mask in place and her hand just for her to be able to get breathing treatment because pt would not leave mask in place. As staff was getting ready to transferred, Pt continued to decline, respirations increasing from mid 20s to high 40s. Sats in the 80s on room air. RT was in the room and helped getting the Pt on O2. was in the room and aware of plan to move units. Plan is for IR to place neph tube to right side tomorrow. Positive blood cultures called this morning, MD aware. All belongings were taken with Pt.
[2024-10-07] MEDS ORDERED: Ipratropium/Albuterol SulF 2.5-0.5MG/3 ML Amp INH SCH (10:50)
[2024-10-07] MEDS ORDERED: Albuterol 2.5 MG/3 ML VIAL INH ONE (10:50)
[2024-10-07] MEDS ORDERED: Albuterol 2.5 MG/3 ML VIAL INH PRN (10:50)
[2024-10-07] MEDS ORDERED: Ipratropium/Albuterol SulF 2.5-0.5MG/3 ML Amp INH ONE (10:50)
--- NOTE | 2024-10-07 11:15 | NUR ---
Received patient from PCU. She is in visible respiratory distress, utilizing accessory muscles. Heart rate in 140-150s. Dr. Gordon called to bedside with orders for RSI. 1151: 4mg versed 1152: 30mg etomidate 1153: Intubated with #8.0 @ 24 (teeth) with EtCO2 of 25 & bilateral lung sounds auscultated 1157: 10mg rocuronium CXR pending. Orders for propofol & norepi gtts as well as 1L of LR bolus.
[2024-10-07] MEDS ORDERED: Lactated Ringer's 1,000 ML IV ONE ×2 (11:19→11:30)
[2024-10-07] MEDS ORDERED: propofoL 100 ML IV ONE (11:57)
[2024-10-07] MEDS ORDERED: FentaNYL Citrate 50 MCG/ML 2 ML Injection IV PRN (12:00)
[2024-10-07] MEDS ORDERED: propofoL 100 ML IV SCH (12:00)
[2024-10-07 12:34] LABS: Base Excess Venous -11.1 mmol/L; Bicarbonate Venous 16.2 mmol/L (24.0-30.0); PCO2 Venous 36.6 mmHg (38-42); pH Blood Venous 7.25 (7.34-7.37)
[2024-10-07] MEDS ORDERED: Acetaminophen 160MG / 5ML 10.15 UDC PT PRN (13:10)
[2024-10-07] MEDS ORDERED: Vasopressin 20 UNITS in NS 100 ML IV SCH (13:25)
[2024-10-07] MEDS ORDERED: Vancomycin HCL 1,000 MG in NS 250 ML IV SCH (15:00)
[2024-10-07] MEDS ORDERED: Vancomycin HCL 1,500 MG in NS 250 ML IV SCH (15:00)
[2024-10-07] MEDS ORDERED: NS 500 ML IV SCH (15:05)
[2024-10-07] MEDS ORDERED: Hydrogen Peroxide 1.5 % Solution MT SCH (16:00)
[2024-10-07] MEDS ORDERED: Albumin (Human) 12.5gm/250ml 250 ML IV ONE ×2 (17:30→19:25)
[2024-10-07 17:44] LABS: PCO2 Arterial 25.8 mmHg (35-45); PO2 Arterial 137 mmHg (80-100)
[2024-10-07 17:45] LABS: pH Blood Arterial 7.28 (7.35-7.45)
[2024-10-07] MEDS ORDERED: Phenylephrine HCl in 0.9% NaCl 250 ML IV SCH (18:15)
[2024-10-07 18:22] LABS: Bun/Creatinine Ratio 15.1 (12.0-20.0); Calcium, Blood 7.7 mg/dL (8.5-10.1); Creatinine, Blood 2.32 mg/dL (0.40-1.00); Potassium, Blood 3.1 mmol/L (3.5-5.5)
[2024-10-07] MEDS ORDERED: Potassium Chloride 20 MEQ/15 ML UDC PT ONE (18:35)
--- NOTE | 2024-10-07 19:16 | NUR ---
End of shift summary: Propofol is infusing at 30 mcgs/kg/min due to RASS +1 as well as vent dyssynchrony & tachypnea. Current RASS -2. 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 Pupils 2-3 & briskly reactive. Tmax 104.3, tylenol x1 administered & ice packs placed. Has been sinus tach as high as 150s but currently sustaining in 120 range. Targeting a MAP of 65 with levophed at 45 mcgs/min & vasopressin currently infusing. Oxygen saturations maintaining on 60% FiO2 with clear lung sounds & #8.0 secure at 24cm at the teeth. ABGs trending & all results shared with Dr. Gordon. Lawson with 200cc of dark yellow output from [id number]. OGT, CVC, & art line all present & secured. Potassium replaced with 40meq x1. Dr. Gordon at the bedside numerous times throughout the shift & care plan updated per his orders, he has been notified of all abnormal findings. has been notified of all interventions & plan of care.
[2024-10-07] MEDS ORDERED: Cetylpyridinium Chloride 1 EA MISC MT SCH (20:00)
[2024-10-07] MEDS ORDERED: Hydrocortisone Sod Succinate 100 MG Vial IV SCH (21:00)
[2024-10-07 22:51] LABS: PCO2 Arterial 25.3 mmHg (35-45); PO2 Arterial 173 mmHg (80-100); pH Blood Arterial 7.24 (7.35-7.45)
[2024-10-07 23:24] LABS: Albumin, Blood 2.7 g/dL (3.4-5.0); Albumin/Globulin Ratio 0.8 (0.8-1.8); Bilirubin, Total 1.3 mg/dL (0.1-1.0); Bun/Creatinine Ratio 14.8 (12.0-20.0); Calcium, Blood 7.7 mg/dL (8.5-10.1); Creatinine, Blood 2.5 mg/dL (0.40-1.00); Globulin, Blood 3.6 g/dL (2.2-4.0); Potassium, Blood 3.6 mmol/L (3.5-5.5); Total Protein, Blood 6.3 g/dL (6.4-8.2)
[2024-10-07] MEDS ORDERED: Sodium Bicarb 8.4% Inj 150 MEQ in Dextrose 5% 1,000 ML IV SCH (23:35)
[2024-10-07] MEDS ORDERED: Magnesium Sulf 2 GM/Water 50ML 50 ML IV ONE (23:40)
--- NOTE | 2024-10-07 23:42 | NUR ---
ALL CRITICAL LAB VALUES CALLED TO DR POOLE. SEE ORDERS
[2024-10-07] MEDS ORDERED: Meropenem 1,000 MG in NS 100 ML IV SCH (23:48)
[2024-10-08] VITALS (8 sets, daily range): BP systolic 108–117; BP diastolic 54–80
[2024-10-08 01:49] LABS: Vancomycin, Trough 25.1 ug/mL (5.0-10.0)
--- NOTE | 2024-10-08 05:29 | NUR ---
SHIFT SUMMERY PT REMAINS INTUBATED W/ETT INTACT AND PATENT TO THE VENT. OXYGEN SAT HAVE BEEN >92% AND SHE HAS HAD NO RESP DISTRESS. SHE IS SEDATED W/PROPOFOL, SEE [facility]. PRESSORS ARE STILL INFUSING-SEE [facility]-TO MAINTAIN MAP >65. SHE HAS BEEN ST ON THE CARDIAC MONTITOR. FEBRILE, MEDICATED PER EMAR AND ICE PACKS IN PLACE WELL. OG TUBE CLAMPED. PT HAS TE AND CVL, INTACT AND WORKING PROPERLY. [facility] CATH INTACT PATENT AND DRAINING TO GRAVITY. DR POOLE UPDATED ON PT CONDITION OVERNIGHT AND CALLED TO CHECK ON HER WELL. NO FAMILY PRESENT.
[2024-10-08 05:55] LABS: Hematocrit 33.1 % (33.0-51.0); Hemoglobin 11.4 g/dL (11.5-16.0); Mean Corpuscular HGB 30.6 pg (26.0-34.0); Mean Corpuscular HGB Conc 34.4 g/dL (31.5-36.5); Mean Corpuscular Volume 89 fL (80-100); NRBC ABSOLUTE 0.02 K/mm3 (0.00-0.02); NRBC Auto 0.1 /100 WBC (0.0-0.2); Platelet Count 83 K/mm3 (150-400); RDW Coefficient Variation 14.9 % (11.7-14.2); RDW Standard Deviation 48.7 fL (35.1-46.3); Red Blood Cell Count 3.73 M/mm3 (3.80-5.20); White Blood Cell Count 19.91 K/mm3 (4.00-11.30)
[2024-10-08 05:59] LABS: Mean Platelet Volume 13.1 fL (9.1-12.4)
[2024-10-08 06:24] LABS: Bun/Creatinine Ratio 15.7 (12.0-20.0); Calcium, Blood 7.5 mg/dL (8.5-10.1); Creatinine, Blood 2.55 mg/dL (0.40-1.00); Potassium, Blood 3.9 mmol/L (3.5-5.5)
[2024-10-08 07:29] LABS: BAND PERCENT MAN 29 % (0-8); BASOPHILS PERCENT MAN 0 % (0-2); EOSINOPHILS PERCENT MAN 0 % (0-6); LYMPHOCYTES ABSOLUTE MAN 1.19 K/mm3 (0.84-5.20); LYMPHOCYTES PERCENT MAN 6 % (21-46); METAMYELOCYTE ABSOLUTE MAN 1.59 K/mm3 (0.00-0.00); METAMYELOCYTE PERCENT MAN 8 % (0-0); MONOCYTES PERCENT MAN 0 % (4-13); MYELOCYTE ABSOLUTE MAN 0.19 K/mm3 (0.00-0.00); MYELOCYTE PERCENT MAN 1 % (0-0); NEUTROPHILS ABSOLUTE MAN 16.92 K/mm3 (1.96-9.15); SEG NEUTROPHILS PERCENT MAN 56 % (41-73); TOTAL CELLS COUNTED 100
[2024-10-08] MEDS ORDERED: Pantoprazole Sodium 40 MG Injection IV SCH (08:00)
[2024-10-08] MEDS ORDERED: Insulin Glargine-Yfgn 100 Unit/mL 3 ML SYR SC SCH (09:00)
[2024-10-08] MEDS ORDERED: Insulin Human Lispro 100 Units/ML 3ML Syringe SC SCH (12:00)
[2024-10-08] MEDS ORDERED: NS 500 ML IV ONE (13:10)
--- NOTE | 2024-10-08 13:42 | NUR ---
REASSESSMENT PT REMAINS INTUBATED AND SEDATED. SEDATION STOPPED THIS MORNING FOR BREATHING TRIAL, BUT RESTARTED WHEN PT WENT TO [facility] FOR NEPHROSTOMY TUBE PLACEMENT. PT NOW HAS NEPHROSTOMY TUBE FROM R KIDNEY. RED DRAINAGE IN BAG. [facility] ALSO HAS SOME RED DRAINAGE AFTER TUBE PLACEMENT. LEVOPHED HAS BEEN TITRATED DOWN. ATTEMPTED TO TURN VASOPRESSIN OFF AFTER LEVOPHED GOT DOWN TO 6MCG/MIN, BUT MAP DROPPED BELOW 65 SO IT WAS RESTARTED. SR WITH RATE IN THE 90S. PT'S VISITED AND WAS UPDATED BY NURSING STAFF AND DR. GRIGGS.
--- NOTE | 2024-10-08 17:42 | NUR ---
SHIFT SUMMARY PT REMAINS INTUBATED AND SEDATED. SEDATION TITRATED DOWN TO 15MCG/KG/MIN AFTER NEPHROSTOMY TUBE WAS PLACED. LUNGS ARE CLEAR, MINIMAL SECRETIONS. ST WITH RATE IN THE LOW 100S. PRESSORS TITRATED DOWN, VASOPRESSIN OFF, LEVOPHED AT 12 MCG/MIN. NEPHROSTOMY TUBE WITH RED DRAINAGE AND RED OUTPUT FROM [facility] WELL. DIETARY CONSULT PLACED THIS AFTERNOON FOR TUBE FEED. LARGE BM THIS AM AND SMALL BM THIS EVENING. FAMILY HAS BEEN IN THE ROOM AND UPDATED.
[2024-10-09] VITALS (17 sets, daily range): BP systolic 92–130; BP diastolic 58–95
[2024-10-09 03:28] LABS: Hematocrit 29.3 % (33.0-51.0); Hemoglobin 10.5 g/dL (11.5-16.0); Mean Corpuscular HGB 29.7 pg (26.0-34.0); Mean Corpuscular HGB Conc 35.8 g/dL (31.5-36.5); Platelet Count 62 K/mm3 (150-400); RDW Standard Deviation 42.4 fL (35.1-46.3); Red Blood Cell Count 3.54 M/mm3 (3.80-5.20); White Blood Cell Count 13.16 K/mm3 (4.00-11.30)
[2024-10-09 03:29] LABS: Mean Corpuscular Volume 83 fL (80-100); Mean Platelet Volume 13.9 fL (9.1-12.4)
[2024-10-09 03:45] LABS: Albumin/Globulin Ratio 0.6 (0.8-1.8); Bilirubin, Total 1.9 mg/dL (0.1-1.0); Bun/Creatinine Ratio 17.2 (12.0-20.0); Calcium, Blood 7.5 mg/dL (8.5-10.1); Creatinine, Blood 2.44 mg/dL (0.40-1.00); Globulin, Blood 3.5 g/dL (2.2-4.0); Total Protein, Blood 5.5 g/dL (6.4-8.2)
[2024-10-09 04:26] LABS: BAND PERCENT MAN 23 % (0-8); BASOPHILS PERCENT MAN 0 % (0-2); EOSINOPHILS PERCENT MAN 0 % (0-6); LYMPHOCYTES ABSOLUTE MAN 0.52 K/mm3 (0.84-5.20); LYMPHOCYTES PERCENT MAN 4 % (21-46); METAMYELOCYTE ABSOLUTE MAN 0.13 K/mm3 (0.00-0.00); METAMYELOCYTE PERCENT MAN 1 % (0-0); MONOCYTES ABSOLUTE MAN 1.44 K/mm3 (0.16-1.47); MONOCYTES PERCENT MAN 11 % (4-13); NEUTROPHILS ABSOLUTE MAN 11.05 K/mm3 (1.96-9.15); SEG NEUTROPHILS PERCENT MAN 61 % (41-73); TOTAL CELLS COUNTED 100
--- NOTE | 2024-10-09 04:41 | NUR ---
UPDATE CALLED AND NOTIFIED DR BOSS OF POTASSIUM 3.0 WITH AM LABS, NEW ORDER RECEIVED FOR POTASSIUM REPLACEMENT
--- NOTE | 2024-10-09 06:18 | NUR ---
SHIFT SUMMARY PT INTUBATED AND SEDATED,ON VENT FIO2 40% PROPOFOL TITRATED PER ORDERS RASS -1/-2, TOLERATING VENT WELL, SR/ST 90-100S, BP MAP>65 WITH LEVOPHED TITRATED PER ORDERS, TURNED AND REPOSITIONED EVERY 2 HOURS FOR COMFORT AND PRESSURE RELIEF, OG PATENT AND CLAMPED, RIGHT NEPHROSTOMY TUBE PATENT AND DRAINING RED /BROWN URINE WITH SMALL STRINGY CLOTS TO GRAVITY, [facility] PATENT AND DRAINING RED URINE TO GRAVITY, LEFT ART LINE PATENT WITH GOOD WAVE FORM, LINE ZEROED AND FLUSHED AT BEGINNING OF SHIFT, NOTED RLE +4 EDEMA AND WEEPING, RUE +2/+3 EDEMA, DOPPLER RIGHT PEDAL PULSE, RIGHT SIDE FLACCID, LEFT WRIST RESTRAINT IN PLACE, HOB UP 30 DEGREES, NO DISTRESS NOTED, SIDE RAILS UP X2
[2024-10-09] MEDS ORDERED: Lactobacil 2-S.Thermo-Bifido 1 1 Cap PT SCH (09:00)
[2024-10-09] MEDS ORDERED: CefTRIAXone Sodium 1,000 MG in NS 100 ML IV SCH (09:00)
[2024-10-09] MEDS ORDERED: Enoxaparin 30 MG/0.3 ML SYR SC SCH (09:00)
[2024-10-09] MEDS ORDERED: Bisacodyl 10 MG Supp PR PRN (09:30)
[2024-10-09] MEDS ORDERED: Docusate Sodium 100 MG UDC PT PRN (09:30)
[2024-10-09] MEDS ORDERED: Magnesium Hydroxide Conc 10 ML UDC PT PRN (09:30)
[2024-10-09] MEDS ORDERED: Protein Supplement 30 ML UD PT SCH (09:35)
[2024-10-09] MEDS ORDERED: Ipratropium/Albuterol SulF 2.5-0.5MG/3 ML Amp INH PRN (11:15)
[2024-10-09] MEDS ORDERED: dexmedeTOMIDine 100 ML IV SCH (11:20)
--- NOTE | 2024-10-09 18:39 | NUR ---
SHIFT SUMMARY Pt on spontaneous most of the day, pressure support decreased down to 12. Unable to extubate today d/t altered mental status. Propofol changed to precedex. All pressors off as of 1130, BP maintining with MAP >65. Tube feed started. Platlets low, lovenox held today and a unit of platlets transfused. Lawson and nephrostomy tube are red, Dr. Eden aware. Nephrostomy tube flushed 1x with 10cc NS towards and 10cc NS away from patient. updated on plan of care.
--- NOTE | 2024-10-09 22:29 | NUR ---
UPDATE LEFT RADIAL ART LINE DC/D PER ORDERS, SUTURE REMOVED, TIP INTACH, PRESSURE DRESSING OF 4X4 GAUZE AND COBAN PLACED OVER INSERTION SITE, PT TOLERATED WELL, NON INVASIVE BP ON RIGHT WRIST CORRELATED WITH ARTERIAL BP
[2024-10-10] VITALS (36 sets, daily range): BP systolic 110–145; BP diastolic 72–99
[2024-10-10 03:56] LABS: Hematocrit 32.1 % (33.0-51.0); Hemoglobin 11.1 g/dL (11.5-16.0); Mean Corpuscular HGB 29.4 pg (26.0-34.0); Mean Corpuscular HGB Conc 34.6 g/dL (31.5-36.5); Mean Corpuscular Volume 85 fL (80-100); Mean Platelet Volume 12.1 fL (9.1-12.4); NRBC ABSOLUTE 0.02 K/mm3 (0.00-0.02); NRBC Auto 0.2 /100 WBC (0.0-0.2); Platelet Count 73 K/mm3 (150-400); RDW Coefficient Variation 14.5 % (11.7-14.2); Red Blood Cell Count 3.77 M/mm3 (3.80-5.20); White Blood Cell Count 8.28 K/mm3 (4.00-11.30)
[2024-10-10 04:17] LABS: Albumin, Blood 2.1 g/dL (3.4-5.0); Albumin/Globulin Ratio 0.5 (0.8-1.8); Bilirubin, Total 1.4 mg/dL (0.1-1.0); Bun/Creatinine Ratio 23.1 (12.0-20.0); Calcium, Blood 7.9 mg/dL (8.5-10.1); Creatinine, Blood 2.25 mg/dL (0.40-1.00); Magnesium, Blood 2.1 mg/dL (1.6-2.4); Phosphorus, Blood 2.4 mg/dL (2.5-4.9); Potassium, Blood 3.5 mmol/L (3.5-5.5); Total Protein, Blood 6.1 g/dL (6.4-8.2)
[2024-10-10 04:23] LABS: BAND PERCENT MAN 7 % (0-8); BASOPHILS PERCENT MAN 0 % (0-2); EOSINOPHILS PERCENT MAN 0 % (0-6); LYMPHOCYTES ABSOLUTE MAN 0.57 K/mm3 (0.84-5.20); LYMPHOCYTES PERCENT MAN 7 % (21-46); MONOCYTES ABSOLUTE MAN 0.16 K/mm3 (0.16-1.47); MONOCYTES PERCENT MAN 2 % (4-13); NEUTROPHILS ABSOLUTE MAN 7.53 K/mm3 (1.96-9.15); SEG NEUTROPHILS PERCENT MAN 84 % (41-73); TOTAL CELLS COUNTED 100
--- NOTE | 2024-10-10 06:33 | NUR ---
SHIFT SUMMARY NO ACUTE EVENTS THIS SHIFT, VSS, TMAX 99.9F, REMAINS ON VENT, ETT AT 24 CM AT TEETH SECURED WITH COMMERCIAL TUBE BARROS, OG PATENT AND SECURED TO ETT WITH TAPE,VITAL HP INFUSING TO OG AT GOAL RATE OF 30 ML/HR WITH 30 ML H2O FLUSHES EVERY 4 HOURS, PT TOLERATING WELL, RIGHT NEPHROSTOMY TUBE DRAINING RED URINE WITH NOTED SM STRINGY CLOTS TO GRAVITY, [facility] PATENT AND DRIANING SUSAN URINE WITH OCCASIONALY SMALL STRINGY CLOTS TO GRAVITY, RIGHT IJ CVC PATENT WITH PRECEDEX INFUSING PER ORDERS, RASS -1/-2, NO BM THIS SHIFT, HOB UP 35 DEGREES, SIDE RAILS UP X2 CALL LIGHT IN REACH
[2024-10-10] MEDS ORDERED: Potassium Phosphate Dibasic 20 MM in Dextrose 5% 500 ML IV ONE (07:30)
--- NOTE | 2024-10-10 13:46 | NUR ---
EXTUBATION PT EXTUBATED AT APPROX 1300 TO 4L NC. STILL SLEEPY BUT MAINTAINING AIRWAY. PRECEDEX ON HOLD.
--- NOTE | 2024-10-10 18:43 | NUR ---
SHIFT SUMMARY Platlets somewhat improved today. Vent settings weaned, pt extubated this afternoon to NC. Not following commands but is moving L side. Precedex off. Powerglide placed on L side. Nephrostomy output much less bloody today.
--- NOTE | 2024-10-10 21:23 | NUR ---
ASSUMED CARE ASSUMED CARE OF PATIENT AT THIS TIME. PT IS RESTING QUIETLY. VSS.
[2024-10-11] VITALS (35 sets, daily range): BP systolic 110–145; BP diastolic 68–83
[2024-10-11 05:28] LABS: BASOPHILS ABSOLUTE AUTO 0.03 K/mm3 (0.00-0.23); BASOPHILS PERCENT AUTO 0 % (0-2); EOSINOPHILS ABSOLUTE AUTO 0.14 K/mm3 (0.00-0.68); EOSINOPHILS PERCENT AUTO 2 % (0-6); Hematocrit 32.5 % (33.0-51.0); Hemoglobin 10.9 g/dL (11.5-16.0); IMMATURE GRAN ABSOLUTE AUTO 0.14 K/mm3 (0.00-0.10); IMMATURE GRAN PERCENT AUTO 2 % (0-1); LYMPHOCYTES ABSOLUTE AUTO 1.38 K/mm3 (0.84-5.20); LYMPHOCYTES PERCENT AUTO 20 % (21-46); MONOCYTES ABSOLUTE AUTO 0.35 K/mm3 (0.16-1.47); MONOCYTES PERCENT AUTO 5 % (4-13); Mean Corpuscular HGB 29.3 pg (26.0-34.0); Mean Corpuscular HGB Conc 33.5 g/dL (31.5-36.5); Mean Corpuscular Volume 87 fL (80-100); Mean Platelet Volume 12.7 fL (9.1-12.4); NEUTROPHILS ABSOLUTE AUTO 4.74 K/mm3 (1.96-9.15); NEUTROPHILS PERCENT AUTO 70 % (41-73); NRBC ABSOLUTE 0.02 K/mm3 (0.00-0.02); NRBC Auto 0.3 /100 WBC (0.0-0.2); Platelet Count 66 K/mm3 (150-400); RDW Coefficient Variation 14.6 % (11.7-14.2); RDW Standard Deviation 47.1 fL (35.1-46.3); Red Blood Cell Count 3.72 M/mm3 (3.80-5.20); White Blood Cell Count 6.78 K/mm3 (4.00-11.30)
[2024-10-11 05:58] LABS: Albumin/Globulin Ratio 0.5 (0.8-1.8); Bun/Creatinine Ratio 32.8 (12.0-20.0); Calcium, Blood 7.9 mg/dL (8.5-10.1); Creatinine, Blood 2.01 mg/dL (0.40-1.00); Globulin, Blood 3.7 g/dL (2.2-4.0); Magnesium, Blood 2.2 mg/dL (1.6-2.4); Phosphorus, Blood 2.7 mg/dL (2.5-4.9); Total Protein, Blood 5.7 g/dL (6.4-8.2)
--- NOTE | 2024-10-11 06:49 | NUR ---
SHIFT SUMMARY PT REQUIRED CPAP OF 10 WITH FIO2 30% D/T INCREASED WORK OF BREATHING AND INCREASED WHEEZING. PRECEDEX STARTED FOR CPAP TOLERANCE. PRECEDEX NOW AT 0.3MCG/KG/HR. CONTINUES TO MOVE LEFT UPPER AND LOWER EXTREMITY SPONTANEOUSLY. APHASIC. VSS. MONITOR SHOWS NSR, RATE 60s NOW. AFEBRILE. [facility] PATENT AND DRAINING TO GRAVITY. RIGHT NEPHROSTOMY TUBE INTACT, DRAINING TO GRAVITY- 110MLS REDDISH DRAINAGE. RECTAL TUBE PLACED AFTER MULTIPLE LARGE LIQUID STOOLS. RIJ CENTRAL LINE WITH DRSG D/I. JOYCE MERRILL PATENT, DRSG D/I. PLAN OF CARE ONGOING. WILL REPORT TO ONCOMING RN WHEN AVAILABLE.
[2024-10-11] MEDS ORDERED: Hydrocortisone Sod Succinate 100 MG Vial IV SCH (09:00)
[2024-10-11] MEDS ORDERED: Enoxaparin 40 MG/0.4 ML SYR SC SCH (09:00)
--- NOTE | 2024-10-11 09:02 | NUR ---
IAM Abdi called and spoke with this rn. md Abdi asked about blood in the cruz catheter at this time scant amount in cruz line, and described urine as applejuice coloration. md Abdi at this time wants to continue to monitor and if patient continues to bleed then discuss a CT angio.
--- NOTE | 2024-10-11 10:17 | NUR ---
am note this rn assumed care at 0700. vital signs stable. tele sinus rhythm 60s-70s. on cpap 30% and spo2 >90%. patient sedated on precedex drip. md montana in room around 0920 and spoke with this rn. discussed blood sugar this morning and holding morning dose of long aciting and plan to continue to monitor. md keith in the room at 0933 and removed patient off of cpap and patient tolerating room air with spo2 >90%. plan to remove picc line today. during morning rounds plan to insert dobhuff for tube feedings and start on pivot 1.5 at 25mls/hr and flush 30mls q4 hr. see shift assessment for further detials.
--- NOTE | 2024-10-11 12:02 | NUR ---
DOBHOFF dobhoff placed and confirmed with xr.
--- NOTE | 2024-10-11 12:42 | NUR ---
update patient is now pcu status. order is in per md keith
[2024-10-11] MEDS ORDERED: Banana Flakes/Tos 1 EA Powder Pack PT SCH (14:00)
--- NOTE | 2024-10-11 18:02 | NUR ---
shift summary patient vitals remain stable. family and friends at bedside and updated on patients plan of care. patient tube feed started at 1200 at 25mls/hr and to increase at 2000 by 10-20 to reach goal rate at 45mls/hr, see orders. no acute changes this shift
[2024-10-12] VITALS (7 sets, daily range): BP systolic 139–183; BP diastolic 86–101
[2024-10-12 04:09] LABS: Hematocrit 34.5 % (33.0-51.0); Hemoglobin 11.3 g/dL (11.5-16.0); Mean Corpuscular HGB 28.7 pg (26.0-34.0); Mean Corpuscular HGB Conc 32.8 g/dL (31.5-36.5); Mean Corpuscular Volume 88 fL (80-100); Mean Platelet Volume 12.8 fL (9.1-12.4); NRBC ABSOLUTE 0.02 K/mm3 (0.00-0.02); NRBC Auto 0.2 /100 WBC (0.0-0.2); Platelet Count 92 K/mm3 (150-400); RDW Coefficient Variation 14.8 % (11.7-14.2); RDW Standard Deviation 47.6 fL (35.1-46.3); Red Blood Cell Count 3.94 M/mm3 (3.80-5.20); White Blood Cell Count 9.13 K/mm3 (4.00-11.30)
[2024-10-12 04:35] LABS: BAND PERCENT MAN 6 % (0-8); BASOPHILS PERCENT MAN 0 % (0-2); EOSINOPHILS PERCENT MAN 0 % (0-6); LYMPHOCYTES % ATYPICAL MANUAL 1 % (0-0); LYMPHOCYTES PERCENT MAN 10 % (21-46); MONOCYTES ABSOLUTE MAN 0.18 K/mm3 (0.16-1.47); MONOCYTES PERCENT MAN 2 % (4-13); NEUTROPHILS ABSOLUTE MAN 7.94 K/mm3 (1.96-9.15); SEG NEUTROPHILS PERCENT MAN 81 % (41-73); TOTAL CELLS COUNTED 100
[2024-10-12 04:37] LABS: Albumin, Blood 2.2 g/dL (3.4-5.0); Albumin/Globulin Ratio 0.6 (0.8-1.8); Calcium, Blood 8.2 mg/dL (8.5-10.1); Creatinine, Blood 1.72 mg/dL (0.40-1.00); Phosphorus, Blood 2.5 mg/dL (2.5-4.9); Potassium, Blood 3.2 mmol/L (3.5-5.5); Total Protein, Blood 6.2 g/dL (6.4-8.2)
[2024-10-12] MEDS ORDERED: Hydrocortisone Sod Succinate 100 MG Vial IV SCH (09:00)
--- NOTE | 2024-10-12 11:39 | NUR ---
PT HAS REFUSED ALL BLOOD SUGAR MONITORING
--- NOTE | 2024-10-12 12:37 | NUR ---
CALLED DR. DURAN FOR HTN () AND NO PRNS AVAILABLE. DOCTOR WILL PLACE ORDERS.
--- NOTE | 2024-10-12 13:21 | NUR ---
WAS CALLED ABOUT BLOOD PRESSURE, NO ORDERS HAVE BEEN OBTAINED AT THIS TIME
--- NOTE | 2024-10-12 13:33 | NUR ---
PT DID ALLOW FOR TURN AT THIS TIME. SHE IS REFSUES BLOOD SUGAR MONITORING AND BANITROL ASMINISTRATION.
[2024-10-12] MEDS ORDERED: Metoprolol Tartrate 1 MG/ML 5 ML VIAL IV PRN (14:25)
[2024-10-12] MEDS ORDERED: Potassium Chloride 40 MEQ in NS 250 ML IV ONE (14:30)
--- NOTE | 2024-10-12 15:56 | NUR ---
PT RECIEVED LOPRESSOR IVP WITH NO APPRECIABLE CHANGE IN BP. PT CONTINUES ON RA WITHOUT SOB, EVEN CHEST RISE AND FALL NOTED. SHE HAS NOT ALLOWED ORAL CARE FOR THE DAY, SHE DID ALLOW ONCE FOR ORAL CARE WITH COUGHING EVEN WITH SUCTION. SHE CONTINUES TO REFUSE ANY BLOOD SUGAR MONITORING. SHE INTERMITTENTLY REFUSES REPOSITIONING.
[2024-10-12] MEDS ORDERED: Aspirin 300 MG Supp PR SCH (18:00)
--- NOTE | 2024-10-12 18:16 | NUR ---
arrived to pcu patient arrived to pcu at 1610 from icu and transfered into pcu bed with via lift. patient family at bedside.
[2024-10-13] VITALS (13 sets, daily range): BP systolic 174–214; BP diastolic 90–111
--- NOTE | 2024-10-13 06:17 | NUR ---
[place] [facility] SUMMARY NO SIGNIFICANT CHANGES OVERNIGHT. TUBE FEED RUNNING AT 45 AN HOUR WITH Q4 150CC FLUSHES. PT STILL HAS A RECTAL TUBE WITH LIQUID BROWN BOWEL MOVEMENTS. R NEPHROSTOMY OUTPUT IS STILL PINK. PRN METOPROLOL GIVEN TWICE FOR BLOOD PRESSURES HIGHER THAN 180. PT WAS TURNED AND CLEANED EVERY 2 HOURS. SHE DENIES PAIN OR DISCOMFORT.
[2024-10-13 06:41] LABS: Hematocrit 36.8 % (33.0-51.0); Hemoglobin 11.9 g/dL (11.5-16.0); Mean Corpuscular HGB Conc 32.3 g/dL (31.5-36.5); Mean Corpuscular Volume 90 fL (80-100); Mean Platelet Volume 12.2 fL (9.1-12.4); NRBC ABSOLUTE 0.02 K/mm3 (0.00-0.02); NRBC Auto 0.2 /100 WBC (0.0-0.2); Platelet Count 120 K/mm3 (150-400); RDW Coefficient Variation 15.2 % (11.7-14.2); RDW Standard Deviation 49.8 fL (35.1-46.3); White Blood Cell Count 11.54 K/mm3 (4.00-11.30)
[2024-10-13 07:08] LABS: Bun/Creatinine Ratio 40.3 (12.0-20.0); Calcium, Blood 8.4 mg/dL (8.5-10.1); Creatinine, Blood 1.39 mg/dL (0.40-1.00); Potassium, Blood 3.6 mmol/L (3.5-5.5)
--- NOTE | 2024-10-13 08:55 | NUR ---
UPDATE BP CONTINUES TO BE HIGH WITH SYSTOLIC >190. DR. DURAN CALLED AND NOTIFIED. ORDERS TO CONTINUE TO MONITOR.
[2024-10-13] MEDS ORDERED: Aspirin 81 MG Chew PO SCH (09:00)
[2024-10-13] MEDS ORDERED: Lisinopril 10 MG Tab PO SCH (11:00)
[2024-10-13] MEDS ORDERED: AmLODIPine Besylate 5 MG Tab PO SCH (11:00)
[2024-10-13] MEDS ORDERED: HydroCHLOROthiazide 25 mg Tab PO SCH (11:00)
[2024-10-13] MEDS ORDERED: Dextrose 5% 1,000 ML IV SCH (11:10)
--- NOTE | 2024-10-13 17:26 | NUR ---
SHIFT SUMMARY PT REMAINS ALERT AND ORIENTED, BUT SLOW TO RESPOND. ABLE TO COMMUNICATE BEST WITH YES OR NO QUESTIONS. BP STILL ELEVATED, BUT IMPROVED THIS EVENING. HR REMAINS NSR. O2 SATS HAVE REMAINED ABOVE 90% ON RA. PT HAS DENIED PAIN. RECTAL TUBE REMAINS IN PLACE WITH LIQUID LIGHT BROWN STOOL. [facility] PATENT AND DRAINING. RIGHT NEPHROSTOMY IN PLACE WITH YELLOW OUTPUT THIS SHIFT. PT ADVANCED TO PUREE DIET THIS SHIFT AND DOBHOFF REMOVED PRIOR TO LUNCH. PT REPORTED SLIGHT DIFFICULTY SWALLOWING MASHED POTATOES FOR LUNCH, BUT WAS ABLE TO EAT PUREE MEAT WITHOUT DIFFICULTY. PT TOLERATING THIN LIQUIDS. PT REPOSITIONED Q2H AND LIFTED UP TO CHAIR FOR APPROXIMATELY 2 HOURS THIS AFTERNOON. WILL REPORT OFF TO ONCOMING STELLA
[2024-10-14] VITALS (11 sets, daily range): BP systolic 141–222; BP diastolic 65–94
[2024-10-14] MEDS ORDERED: HydrALAZINE HCl 20 MG / ML 1ML Vial IV PRN ×2 (00:10→04:00)
[2024-10-14] MEDS ORDERED: Labetalol HCL 5 MG/ML 4ML Injection (Single Dose) IV PRN (01:20)
[2024-10-14] MEDS ORDERED: Atenolol 50 MG Tab PO SCH (04:00)
[2024-10-14] MEDS ORDERED: AmLODIPine Besylate 5 MG Tab PO SCH (04:00)
[2024-10-14] MEDS ORDERED: HydrALAZINE HCl 20 MG / ML 1ML Vial IV ONE (04:00)
[2024-10-14 04:44] LABS: Bun/Creatinine Ratio 33.3 (12.0-20.0); Calcium, Blood 8.7 mg/dL (8.5-10.1); Creatinine, Blood 1.17 mg/dL (0.40-1.00); Potassium, Blood 3.1 mmol/L (3.5-5.5)
--- NOTE | 2024-10-14 05:58 | NUR ---
SHIFT SUMMARY PT A&OX4. VSS ON RA AT THIS TIME. THROUGHOUT SHIFT PT HAD INCREASED BP. START OF SHIFT DR BOSS ORDERED PRN Q4HR HYDRALAZINE 10MG. DID NOT TOUCH PT. DR SANCHEZ NOTIFIED, PRN Q4HR LABETOLOL 10MG ORDERED AND GIVEN. ALSO DID NOT EFFECT PT HOPED. NOTIFIED AGAIN AND PT WAS GIVEN HYDRALAZINE 20MG. GIVEN WITH GOOD EFFECT. BP STABALIZED FOR NOW. ATTEMPTED TO GIVEN PT ORAL MEDICATIONS CRUSHED IN APPLE SAUCE. PT WAS UNABLE TO EFFECTIVELY SWALLOW. PT STARTED TO CHOKE AND WAS THEN INSTRUCTED TO SPIT APPLESAUCE OUT. PT AT RISK FOR ASPIRATION. KEPT IN 90 DEGREE ANGLE FOR REST OF SHIFT WITH SUCTION AT BEDSIDE. DR SANCHEZ NOTIFIED AND PLACED ANOTHER SPEECH EVAL TO CLARIFY ABILITY TO SWALLOW. PT HAD NO C/O PAIN THROUGHOUT NIGHT. R NEPHROSTOMY OUTPUTTING ADEQUATE AMOUNTS AND SITE CDI. [facility] IN PLACE, PATENT AND DRAINING WITH GRAVITY. NO FURTHER QUESTIONS OR CONCERNS AT THIS TIME. CALL HYDE WITHIN REACH WITH BED ALARM ON.
[2024-10-14] MEDS ORDERED: Potassium Chloride 40 MEQ in NS 250 ML IV ONE (06:40)
[2024-10-14] MEDS ORDERED: Atenolol 25 MG Tab PT SCH (09:00)
[2024-10-14] MEDS ORDERED: Atenolol 50 MG Tab PO ONE (09:00)
[2024-10-14] MEDS ORDERED: AmLODIPine Besylate 5 MG Tab PO ONE (09:00)
[2024-10-14] MEDS ORDERED: Hydrocortisone Sod Succinate 100 MG Vial IV SCH (09:00)
[2024-10-14] MEDS ORDERED: Atenolol 25 MG Tab PO SCH (09:00)
--- NOTE | 2024-10-14 17:36 | NUR ---
SHIFT SUMMARY PT REMAINS ALERT AND ORIENTED, BUT LETHARGIC THIS EVENING. PT TOO DROWSY THIS EVENING TO EAT DINNER. PT REPORTED THIS AM THAT SHE DID NOT WANT THE PUREE FOOD. SHE TOOK ONE BITE AND STARTED GAGGING AND SPIT IT OUT. PT TOLERATED NUTRITION DRINK AND WATER. BP ELEVATED THIS EVENING AND MEDICATED PER EMAR. HR REMAINS NSR. O2 SATS HAVE REMAINED ABOVE 90% ON RA. PT DENIES ANY PAIN. PT CONTINUE TO HAVE LIQUID BM THROUGH RECTAL TUBE. [facility] PATENT AND DRAINING. NEPHROSTOMY DRAINING CLEAR YELLOW URINE. PT REPOSITIONED Q2H. WILL REPORT OFF TO ONCOMING RN
[2024-10-15 00:28] VITALS: BP 158/84
[2024-10-15 04:26] LABS: Albumin, Blood 2.4 g/dL (3.4-5.0); Albumin/Globulin Ratio 0.5 (0.8-1.8); Bilirubin, Total 1.1 mg/dL (0.1-1.0); Bun/Creatinine Ratio 33.3 (12.0-20.0); Calcium, Blood 8.8 mg/dL (8.5-10.1); Creatinine, Blood 1.17 mg/dL (0.40-1.00); Globulin, Blood 4.9 g/dL (2.2-4.0); Potassium, Blood 3.3 mmol/L (3.5-5.5); Total Protein, Blood 7.3 g/dL (6.4-8.2)
[2024-10-15 04:55] VITALS: BP 152/85
[2024-10-15] MEDS ORDERED: Potassium Chloride 20 MEQ TabCR PO ONE ×2 (05:30→08:00)
[2024-10-15 07:43] VITALS: BP 157/91
[2024-10-15] MEDS ORDERED: METFORMIN HCL1000 MG PO (10:54)
[2024-10-15] MEDS ORDERED: ATORVASTATIN CA20 MG PO (10:55)
[2024-10-15] MEDS ORDERED: TREMFYA100 MG/11 SC (11:00)
[2024-10-15 11:27] VITALS: BP 156/78
[2024-10-15 15:32] VITALS: BP 148/81
--- NOTE | 2024-10-15 16:53 | NUR ---
SHIFT SUMMARY MENTATION REMAINS UNCHANGED THIS SHIFT. O2 SATS REMAIN ABOVE 90% ON RA. BP STABLE. HR REMAINS NSR. PT CONTINUES TO DENY ANY PAIN. RECTAL TUBE OUT THIS AM. [facility] PATENT AND DRAINING. RIGHT NEPHROSTOMY TUBE IN PLACE WITH CLEAR YELLOW OUTPUT. PT REPOSITIONED Q2H. PUT LIFTED UP TO CHAIR THIS AFTERNOON. WILL REPORT OFF TO ONCOMING RN
[2024-10-15 20:04] VITALS: BP 159/91
[2024-10-16 00:23] VITALS: BP 159/79
[2024-10-16 03:32] VITALS: BP 176/83
[2024-10-16 04:01] VITALS: BP 158/71
--- NOTE | 2024-10-16 05:38 | NUR ---
SHIFT SUMMARY PT REMAINS A&OX4. VSS ON RA. PT AT START OF SHIFT HAD SBP >170. PRN HYDRALAZINE GIVEN WITH GOOD EFFECT. PT ENCOURAGED TO DRINK FLUIDS THROUGHOUT NIGHT BUT REFUSED. PT FREQUENTLY ADJUSTED IN BED TO SHIFT WEIGHT. [facility] REMAINS PATENT AND DRAINING WITH GRAVITY. PT DID NOT HAVE A BM THIS SHIFT. PT USING MIRIAM LIFT TO MOVE FROM BED TO CHAIR D/T FLACCID R SIDE. NO FURTHER QUESTIONS OR CONCERNS AT THIS TIME. CALL HYDE WITHIN REACH.
[2024-10-16 07:17] VITALS: BP 159/82
[2024-10-16 09:34] LABS: Albumin, Blood 2.3 g/dL (3.4-5.0); Anion Gap 10 mmol/L (3-11); Blood Urea Nitrogen 38 mg/dL (8-24); Bun/Creatinine Ratio 36.2 (12.0-20.0); CO2, Blood 22 mmol/L (21-32); Calcium, Blood 8.7 mg/dL (8.5-10.1); Chloride, Blood 116 mmol/L (98-108); Creatinine, Blood 1.05 mg/dL (0.40-1.00); Glomerular Filtration Rate 58 (60-); Glucose, Blood 222 mg/dL (70-99); Phosphorus, Blood 2.9 mg/dL (2.5-4.9); Potassium, Blood 2.9 mmol/L (3.5-5.5); Sodium, Blood 145 mmol/L (136-145)
[2024-10-16] MEDS ORDERED: Potassium Chloride 20 MEQ TabCR PO ONE (11:00)
--- NOTE | 2024-10-16 18:48 | NUR ---
END OF SHIFT PT MEDICAL W/ TELE STATUS. A&O TO SELF, PLACE & FAMILY @ BEDSIDE. PT SLOW TO RESPOND & ANSWER Qs. PT W/ MINIMALLY WORDED RESPONSES. PT W/ R SIDED WEAKNESS, PT REPORTS ABILITY TO MOVE R SIDE, BUT UNABLE TO LIFT R ARM OFF OF BED WHEN THIS RN ASSESSING. PT ABLE TO VERY MINIMALLY SQUEEZE R HAND. PT VSS. SPO2 > 92% ON RA. MONITOR SHOWING SR. [facility] CATH DCd THIS SHIFT. PT W/ POST [facility] VOID, INCONTINENT WEARING ATTENDS. PT SWALLOWING PUREE DIET & THIN LIQUIDS W/ OUT DIFFICULTY NOTED. PT SHAKES HEAD NO BEFORE THIS NURSE ATTEMPTING TO GIVE MEDS & SCRUNCHES FACE IN PROTEST. EDUCATION & EXTENSIVE ENCOURAGEMENT PROVIDED BEFORE PT AGREEABLE TO TAKING MEDICATIONS. PT THEN GAGS THE MOMENT A MEDICATION TOUCHES THE FRONT END OF HER TONGUE. PT SPOUSE AT BEDSIDE STATES PT RESPONDS THIS WAY AT HOME WELL & FURTHER STATES "IT'S PSYCHOLOGICAL." PT AWAITING TRANSFER TO MEDICAL FLOOR.
--- NOTE | 2024-10-16 19:24 | NUR ---
REPORT GIVEN TO ACCEPTING MEDICAL FLOOR RN. PT TO BE TAKEN TO RM 325 W/ BELONGINGS.
[2024-10-16 21:16] VITALS: BP 138/68
[2024-10-17 04:07] VITALS: BP 144/63
--- NOTE | 2024-10-17 05:13 | NUR ---
TRANSFER AND SHIFT SUMMARY: REPORT RECEIVED FROM STELLA MADRID IN PCU. PT TRANSFERRED VIA GURNEY TO ROOM 325 AT 2005. PT ORIENTED TO THE ROOM AND CALL SYSTEM. PT ADMITED TO HOSP[facility] FOR [facility]OND[facility] TO UTI. FULL CODE STATUS. PT HAS HX OF CVA WITH R SIDE DEFICITS AND APHASIA. BED REST, TOTAL ASSIST WITH CARE. TURN Q2 HRS. CONSISTENT CARB DIET, PUREE TEXTURE. THIN LIQUIDS WITH STRAW, 1 SIP AT A TIME. PT TAKES MEDS CRUSHED IN APPLE SAUCE. PT NOTED TO HAVE AN AVERSION TO TAKING MEDS. PT TOOK PROBIOTIC FOR THIS NURSE WITHOUT COMPLICATIONS. PT A&O TO PERSON, PLACE AND FAMILY. VERBAL WITH 1-2 WORD RESPONSES, ABLE TO ANSWER YES / NO QUESTIONS AND USE GESTURES. DENIES PAIN. TELEMETRY IN PLACE, NSR IN 60'S. SATS ABOVE 90% ON RA. PT REFUSING TO USE CPAP AT HS. PT INCONTINENT OF BOWEL AND BLADDER. R NEPHROSTOMY DRAINING YELLOW URINE. POWER GLIDE TO JOYCE. PT /OT RECOMMENDS SNF, POSSIBLE HOME WITH HOME HEALTH SERVICES. CALL LIGHT IN REACH. BED IN LOWEST POSITION. CARES CONTINUE ORDERED.
[2024-10-17 07:43] VITALS: BP 134/68
[2024-10-17 08:57] LABS: Hematocrit 33.9 % (33.0-51.0); Mean Corpuscular HGB 28.6 pg (26.0-34.0); Mean Corpuscular HGB Conc 32.4 g/dL (31.5-36.5); Mean Corpuscular Volume 88 fL (80-100); Mean Platelet Volume 11.8 fL (9.1-12.4); Platelet Count 242 K/mm3 (150-400); RDW Coefficient Variation 15.2 % (11.7-14.2); Red Blood Cell Count 3.84 M/mm3 (3.80-5.20); White Blood Cell Count 16.26 K/mm3 (4.00-11.30)
[2024-10-17 09:09] LABS: Albumin/Globulin Ratio 0.4 (0.8-1.8); Bilirubin, Total 0.7 mg/dL (0.1-1.0); Bun/Creatinine Ratio 28.7 (12.0-20.0); Calcium, Blood 8.5 mg/dL (8.5-10.1); Creatinine, Blood 1.08 mg/dL (0.40-1.00); Globulin, Blood 4.9 g/dL (2.2-4.0); Potassium, Blood 2.9 mmol/L (3.5-5.5); Total Protein, Blood 6.9 g/dL (6.4-8.2)
[2024-10-17] MEDS ORDERED: Dextrose 5% 1,000 ML IV SCH (10:05)
[2024-10-17] MEDS ORDERED: Dextrose 5% 500 ML IV ONE (10:20)
[2024-10-17] MEDS ORDERED: CefTRIAXone Sodium 1,000 MG in NS 100 ML IV SCH (10:30)
[2024-10-17] MEDS ORDERED: Amoxicillin/Clavulanate K 875 MG Tab PO SCH (11:00)
[2024-10-17] MEDS ORDERED: Potassium Chloride 20 MEQ TabCR PO SCH (11:00)
[2024-10-17] MEDS ORDERED: Potassium Chloride 20 MEQ TabCR PO ONE ×2 (12:00→17:00)
[2024-10-17 14:14] LABS: Hemoglobin 11.8 g/dL (11.5-16.0); Mean Corpuscular HGB 28.9 pg (26.0-34.0); Mean Corpuscular HGB Conc 32.8 g/dL (31.5-36.5); Mean Corpuscular Volume 88 fL (80-100); Platelet Count 276 K/mm3 (150-400); RDW Coefficient Variation 15.2 % (11.7-14.2); RDW Standard Deviation 49.5 fL (35.1-46.3); Red Blood Cell Count 4.08 M/mm3 (3.80-5.20); White Blood Cell Count 17.96 K/mm3 (4.00-11.30)
[2024-10-17 14:38] LABS: Bun/Creatinine Ratio 31.8 (12.0-20.0); Calcium, Blood 8.9 mg/dL (8.5-10.1); Creatinine, Blood 1.07 mg/dL (0.40-1.00)
[2024-10-17 15:45] VITALS: BP 138/67
--- NOTE | 2024-10-17 16:20 | NUR ---
NO ACUTE CHANGES THIS SHIFT. PT AND SPOUSE EXPRESSED DESIRE TO GO HOME, CURRENTLY PENDING LAB RESULTS. PT IS Q2HR TURNS. INCONT WITH BRIEF IN PLACE. PT CALLS APPROPRIATLY, ABLE TO MAKE NEEDS KNOWN. VSS. POOR PO INTAKE, PT DECLINING ALL MEAL TRAYS, PT DID TOLORATE CHOCOLATE ENSURE MAX WHEN POURED INTO CUP WITH STRAW, SPOUSE AT BEDSIDE.
[2024-10-17 18:58] LABS: Source, Urine Clean Catch
[2024-10-17 19:06] LABS: Appearance, Urine Clear (Clear); Bilirubin, Urine Neg (Neg); Blood, Urine 3+ (Neg); Color, Urine Yellow (P-Yellow); Glucose Qualitative, Urine 4+ (Neg); Ketones, Urine Neg (Neg); Leukocyte Esterase, Urine 1+ (Neg); Nitrite, Urine Neg (Neg); Protein, Urine 3+ (Neg); Urobilinogen, Urine NORM (Normal); pH, Urine 6.5 (5.0-8.0)
[2024-10-17 19:22] LABS: Bacteria Mod /hpf; Squamous Epithelial Cells Mod /hpf (Few); White Blood Cells, Urine 25-50 /hpf (0-5)
[2024-10-17 19:33] VITALS: BP 145/72
--- NOTE | 2024-10-18 03:16 | NUR ---
SHIFT SUMMARY A&0X2, SPEECH IMPAIRED AND COMMUNICATES NEEDS WITH EFFORT USING GESTURES AT TIMES. GOT VERY FRUSTRATED TRYING TO COMMUNICATE THAT WANTED LIGHT OFF AND PILLOWS REMOVED, REPOSITIONED AT REGULAR INTERVALS D/T IMPAIRED MOBILITY, AFFECTED LIMBS ELEVATED ON PILLOWS & TURNED SIDE TO SIDE,NO ACUTE SKIN ISSUES NEPHROSTOMY TUBE DRAINING SUSAN URINE ALSO INCONTINENT OF LG VOLUME, NO BM EXCEPT A SMALL SMEAR WHICH WAS DARK PURPLE IN COLOR, LABS DUE IN A.M. REFUSED BANANA FLAKES AT H.S. HAS DENIED ANY PAIN, VSS.
[2024-10-18 06:01] VITALS: BP 149/72
[2024-10-18 07:52] VITALS: BP 132/73
[2024-10-18 09:18] LABS: BASOPHILS ABSOLUTE AUTO 0.09 K/mm3 (0.00-0.23); BASOPHILS PERCENT AUTO 1 % (0-2); EOSINOPHILS ABSOLUTE AUTO 0.44 K/mm3 (0.00-0.68); EOSINOPHILS PERCENT AUTO 3 % (0-6); Hematocrit 36.9 % (33.0-51.0); Hemoglobin 11.8 g/dL (11.5-16.0); IMMATURE GRAN ABSOLUTE AUTO 0.11 K/mm3 (0.00-0.10); IMMATURE GRAN PERCENT AUTO 1 % (0-1); LYMPHOCYTES ABSOLUTE AUTO 1.85 K/mm3 (0.84-5.20); LYMPHOCYTES PERCENT AUTO 11 % (21-46); MONOCYTES ABSOLUTE AUTO 0.68 K/mm3 (0.16-1.47); MONOCYTES PERCENT AUTO 4 % (4-13); Mean Corpuscular HGB 28.6 pg (26.0-34.0); Mean Corpuscular Volume 90 fL (80-100); Mean Platelet Volume 11.8 fL (9.1-12.4); NEUTROPHILS ABSOLUTE AUTO 14.41 K/mm3 (1.96-9.15); NEUTROPHILS PERCENT AUTO 82 % (41-73); Platelet Count 274 K/mm3 (150-400); RDW Standard Deviation 49.2 fL (35.1-46.3); Red Blood Cell Count 4.12 M/mm3 (3.80-5.20); White Blood Cell Count 17.58 K/mm3 (4.00-11.30)
--- NOTE | 2024-10-18 09:30 | NUR ---
pt laying in bed, did not want to take her po meds this am, difficulty speaking, which causes he frustration, she refused banana flakes, but is not having stools at this time, lungs are clear t/o, resp even and unlabored, no cough noted, on r/a, hrr, 3+ edema noted to b/l le, ppp faint, cap refill<3 sec, vs stable, afebrile, power glide too juanis site is clear and patent, btx4 abd flat soft nontender, incont of bowel and bladder, briefs in place, skin c/w/d, santiago wiley, call light in reach.
[2024-10-18 09:59] LABS: Bun/Creatinine Ratio 30.2 (12.0-20.0); Calcium, Blood 9.1 mg/dL (8.5-10.1); Creatinine, Blood 1.06 mg/dL (0.40-1.00); Potassium, Blood 3.5 mmol/L (3.5-5.5)
[2024-10-18] MEDS ORDERED: Amoxicillin/Clavulanate K 875 MG Tab PO SCH (12:00)
--- NOTE | 2024-10-18 14:01 | NUR ---
ST TO BEDSIDE. PT TO BE MINCED AND MOIST.
[2024-10-18 15:45] VITALS: BP 127/74
[2024-10-18] MEDS ORDERED: Sennosides 8.6 MG Tab PO ONE (17:00)
[2024-10-18] MEDS ORDERED: Potassium Chloride 20 MEQ TabCR PO ONE (17:00)
--- NOTE | 2024-10-18 18:46 | NUR ---
pt sat up in chair for a few hrs today, got her back to bed with lift, spouce in to see her, wanted to go home today, needs to have a julisa at home, spouce doesn't think has room, will look at rehab, she is adamantly refusing to take any po meds this evening, won't eat meals, but is drinking some juice and ensures. no further changes this shift. call light in reach.
[2024-10-18 19:21] VITALS: BP 142/74
[2024-10-18] MEDS ORDERED: Docusate Sodium 100 MG UDC PO SCH (21:00)
[2024-10-19 05:12] LABS: Hematocrit 32.6 % (33.0-51.0); Hemoglobin 10.7 g/dL (11.5-16.0); Mean Corpuscular HGB Conc 32.8 g/dL (31.5-36.5); Mean Corpuscular Volume 88 fL (80-100); Mean Platelet Volume 11.7 fL (9.1-12.4); Platelet Count 268 K/mm3 (150-400); RDW Coefficient Variation 14.7 % (11.7-14.2); RDW Standard Deviation 47.3 fL (35.1-46.3); Red Blood Cell Count 3.69 M/mm3 (3.80-5.20); White Blood Cell Count 15.06 K/mm3 (4.00-11.30)
[2024-10-19 05:21] VITALS: BP 130/69
[2024-10-19 05:52] LABS: Albumin/Globulin Ratio 0.4 (0.8-1.8); Bilirubin, Total 0.6 mg/dL (0.1-1.0); Bun/Creatinine Ratio 29.3 (12.0-20.0); Calcium, Blood 8.5 mg/dL (8.5-10.1); Creatinine, Blood 0.99 mg/dL (0.40-1.00); Globulin, Blood 4.8 g/dL (2.2-4.0); Potassium, Blood 3.2 mmol/L (3.5-5.5); Total Protein, Blood 6.8 g/dL (6.4-8.2)
--- NOTE | 2024-10-19 05:59 | NUR ---
SHIFT SUMMARY ALERT. ORIENTED TO PERSON, PLACE & PARTIAL SITUATION. APHASIC. NEEDS ASSIST COMMUNICATING NEEDS, CALM, COOPERATIVE W/ CARE EXCEPT W/MEDS. REFUSED ALL H.S. MEDS BECAUSE WE CRUSH-TAKES WHOLE AT HOME. (GAGS HER ANY OTHER WAY) ENCOURAGED TO AT LEAST TAKE ANTIBIOTIC & OFFERED TO PUT IN JUICE,RACHEL ENSURE OR VARIOUS PUREES BUT STILL REFUSED DESPITE EDUCATION OF IMPORTANCE. CBGs IMPROVED (178,172) DYSPHAGIA PRECAUTIONS CONT. NEPHROSTOMY (RT)TUBE OUTPUT 200ML CLEAR YELLOW URINE ALSO INCONTINENT LG X2. NO BM. CBGs IMPROVED (170,172)
[2024-10-19 07:57] VITALS: BP 138/71
[2024-10-19] MEDS ORDERED: AMLO5 PO (15:45)
[2024-10-19] MEDS ORDERED: ATEN50 PO (15:46)
[2024-10-19] MEDS ORDERED: AMOCLA875 PO (15:46)
[2024-10-19] MEDS ORDERED: INSULIN GL100 UNIT/2 SC (15:49)
[2024-10-19] MEDS ORDERED: GLIP2.5ER PO (15:49)
[2024-10-19] MEDS ORDERED: POTCHL20ER PO (15:50)
[2024-10-19] MEDS ORDERED: ASPI81CH PO (15:51)
--- NOTE | 2024-10-19 16:57 | NUR ---
DISCHARGED, PATIENT AND AGTO INSTRUCTIONS, MEDICATIONS, AND FOLLOW UP. BOTH DENIED FURTHER QUESTIONS, LEFT VIA PERSONAL WHEEL CHAIR AND TRANSPORTATION
== END 2024-10-19 17:03 | disposition home or self-care (01) | DRG 871 ==
LOC: ER 13:54 → MEDS 17:18 → PCU 17:18 → ICUE 17:18 → PCU 20:31 → ICUE 10-07 11:05 → PCU 10-12 17:59 → MEDS 10-16 20:01
PROVIDERS: Family Medicine; Internal Medicine; Student in an Organized Health Care Education/Training Program; ADMIT Family Medicine
PROC: 3E03329 Introduction of Other Anti-infective into Peripheral Vein, Percutaneous Approach (ICD-10-PCS; 2024-10-06)
PROC: 02HV33Z Insertion of Infusion Device into Superior Vena Cava, Percutaneous Approach (ICD-10-PCS; 2024-10-07)
PROC: 0BH17EZ Insertion of Endotracheal Airway into Trachea, Via Natural or Artificial Opening (ICD-10-PCS; 2024-10-07)
PROC: 5A1945Z Respiratory Ventilation, 24-96 Consecutive Hours (ICD-10-PCS; 2024-10-07)
PROC: 03HY32Z Insertion of Monitoring Device into Upper Artery, Percutaneous Approach (ICD-10-PCS; 2024-10-07)
PROC: 4A133B1 Monitoring of Arterial Pressure, Peripheral, Percutaneous Approach (ICD-10-PCS; 2024-10-07)
PROC: 4A133J1 Monitoring of Arterial Pulse, Peripheral, Percutaneous Approach (ICD-10-PCS; 2024-10-07)
PROC: 3E04329 Introduction of Other Anti-infective into Central Vein, Percutaneous Approach (ICD-10-PCS; 2024-10-07)
PROC: 4A133R1 Monitoring of Arterial Saturation, Peripheral, Percutaneous Approach (ICD-10-PCS; 2024-10-07)
PROC: 3E043XZ Introduction of Vasopressor into Central Vein, Percutaneous Approach (ICD-10-PCS; 2024-10-07)
PROC: 0T9330Z Drainage of Right Kidney Pelvis with Drainage Device, Percutaneous Approach (ICD-10-PCS; principal; 2024-10-08)
PROC: BT111ZZ Fluoroscopy of Right Kidney using Low Osmolar Contrast (ICD-10-PCS; 2024-10-08)
PROC: 5A09357 Assistance with Respiratory Ventilation, Less than 24 Consecutive Hours, Continuous Positive Airway Pressure (ICD-10-PCS; 2024-10-10)
DX: A41.51 Sepsis due to Escherichia coli [E. coli] (principal); G92.8 Other toxic encephalopathy; J96.01 Acute respiratory failure with hypoxia; R65.21 Severe sepsis with septic shock; N13.6 Pyonephrosis; E87.20 Acidosis, unspecified; N17.9 Acute kidney failure, unspecified; I69.351 Hemiplegia and hemiparesis following cerebral infarction affecting right dominant side; E87.0 Hyperosmolality and hypernatremia; K52.1 Toxic gastroenteritis and colitis; I12.9 Hypertensive chronic kidney disease with stage 1 through stage 4 chronic kidney disease, or unspecified chronic kidney disease; E11.22 Type 2 diabetes mellitus with diabetic chronic kidney disease; L40.9 Psoriasis, unspecified; E66.9 Obesity, unspecified; E87.6 Hypokalemia; E11.65 Type 2 diabetes mellitus with hyperglycemia; I89.0 Lymphedema, not elsewhere classified; D63.1 Anemia in chronic kidney disease; A41.59 Other Gram-negative sepsis; D69.59 Other secondary thrombocytopenia; R79.89 Other specified abnormal findings of blood chemistry; E78.5 Hyperlipidemia, unspecified; T36.95XA Adverse effect of unspecified systemic antibiotic, initial encounter; Z68.36 Body mass index [BMI] 36.0-36.9, adult; N18.9 Chronic kidney disease, unspecified; Z79.82 Long term (current) use of aspirin; Z79.02 Long term (current) use of antithrombotics/antiplatelets; I69.320 Aphasia following cerebral infarction; I69.321 Dysphasia following cerebral infarction; Z78.1 Physical restraint status
CPT/HCPCS: 0241U; 31500; 36415; 36430; 36556; 36620; 70450; 71045; 71260; 74177; 76937; 80048; 80053; 80069; 80202; 81001; 82140; 82803; 82947; 83036; 83605; 83690; 83735; 83880; 84100; 84439; 84443; 84484; 85025; 85027; 85610; 86850; 86900; 86901; 87040; 87077; 87086; 87186; 92526; 92610; 93005; 93010; 94002; 94003; 94640; 94660; 94760; 94762; 96361; 96365-59; 96367; 96375; 97110; 97161; 97166; 97530; 99152; 99153; 99285-25; A9270; C1729; C1751; C1769; C8929; J0360; J0696; J1650; J1720; J1815; J1885; J2060; J2185; J2250; J2405; J2470; J2543; J2704; J3010; J3370; J3475; J3480; J7030; J7040; J7050; J7060; J7070; J7120; P9035; P9045; Q9957; Q9967

== ENCOUNTER 2024-12-26 13:06 | Emergency (ER) | payer OTHER ==
[~2024-12-26] VITALS: Ht 165.1 cm; Wt 104.3 kg
[~2024-12-26 13:06] MED LIST changes: +AMLO5 PO; +AMOCLA875 PO; +ATEN50 PO; +ATORVASTATIN CA20 MG PO; +GLIP2.5ER PO; +INSULIN GL100 UNIT/2 SC; +METFORMIN HCL1000 MG PO; +POTCHL20ER PO; +TREMFYA100 MG/11 SC
[2024-12-26 18:35] VITALS: BP 131/74
[2025-01-04] MEDS ORDERED: BASAGLAR K100 UNIT/1 SC (15:46)
[2025-01-04] MEDS ORDERED: METF500 PO (15:46)
== END 2024-12-26 18:34 | disposition home or self-care (01) ==
LOC: ER 13:06
DX: Z43.6 Encounter for attention to other artificial openings of urinary tract (principal); I10 Essential (primary) hypertension; I69.30 Unspecified sequelae of cerebral infarction; Z79.899 Other long term (current) drug therapy; Z79.84 Long term (current) use of oral hypoglycemic drugs
CPT/HCPCS: 76770; 99284-25

== ENCOUNTER → 2025-09-18 | Outpatient (CLI) | payer OTHER ==
[~2025-09-18] MED LIST changes: +BASAGLAR K100 UNIT/1 SC; +METF500 PO
[2025-09-18 18:34] LABS: Anion Gap 11.0 mmol/L (3-11); Blood Urea Nitrogen 27.0 mg/dL (8-24); CO2, Blood 26.0 mmol/L (21-32); Calcium, Blood 9.6 mg/dL (8.5-10.1); Chloride, Blood 99.0 mmol/L (98-108); Creatinine, Blood 0.93 mg/dL (0.40-1.00); Glucose, Blood 271.0 mg/dL (70-99); Potassium, Blood 3.8 mmol/L (3.5-5.5); Sodium, Blood 132.0 mmol/L (136-145)
== END ==
LOC: LAB SHORT 16:20 → LAB 16:20
PROVIDERS: Nurse Practitioner Family
DX: E11.59 Type 2 diabetes mellitus with other circulatory complications (principal); E11.69 Type 2 diabetes mellitus with other specified complication
CPT/HCPCS: 80048